=== PATIENT | male | born 1955 | race Caucasian/White ===

== ENCOUNTER 2018-03-06 10:52 | Inpatient (IN) | payer OTHER ==
[~2018-03-06] VITALS: Ht 172.7 cm; Wt 76.2 kg
--- NOTE | 2018-03-06 11:05 | NUR ---
PATIENT TO ED DT DIFFUSED ABDOMINAL PAIN, 8/10, NON RADIATING X 2 DAYS WORST TODAY. PATIENT DENIES NAUSEA AND VOMITTING. SKIN IS WARM TO TOUCH AND NON DIAPHORETIC,. PATIENT IS AFEBRILE. VSS
[2018-03-06] MEDS ORDERED: MORPHINE SULFATE INJ 2 MG/ML DISP.SYRIN ONE ×3 (11:11→12:49)
[2018-03-06] MEDS ORDERED: ONDANSETRON HCL/PF 4 MG/2 ML VIAL ONE (11:11)
--- NOTE | 2018-03-06 11:15 | NUR ---
SOLUTIONS DEVELOPMENT ANALYST AT
[2018-03-06 11:21] LABS: APPEARANCE,URINE Slightly Cloudy (CLEAR); BILIRUBIN,URINE MODERATE (NEGATIVE); BLOOD, URINE Trace-lysed Ery/uL (NEGATIVE); COLOR,URINE Dark (YELLOW); KETONES,URINE Negative (NEGATIVE); LEUKOCYTE ESTERASE ,URINE Negative (NEGATIVE); NITRITE, URINE Positive (NEGATIVE); PH,URINE 5.5 (5.0-8.0); PROTEIN,URINE 100 mg/dl (NEGATIVE); UGLUCOSE Negative (NEGATIVE)
[2018-03-06 11:27] LABS: BASOPHILS # (AUTO) 0.4 /CMM (0.0-0.2); BASOPHILS % (AUTO) 1.8 % (0.0-2.0); HEMATOCRIT 57 % (39-51); HEMOGLOBIN 19.8 g/dL (13.5-17.5); LYMPHOCYTES % (AUTO) 7.9 % (20.0-44.0); MEAN CORPUSCULAR HGB CONC 35 g/dl (31.0-36.0); MEAN CORPUSCULAR VOLUME 93 fL (80-96); MONOCYTES # (AUTO) 0.6 /CMM (0.1-1.30); MONOCYTES % (AUTO) 2.4 % (2.0-12.0); NEUTROPHILS # (AUTO) 21.9 /CMM (1.8-8.9); NEUTROPHILS % (AUTO) 87.9 % (43.0-81.0); PLATELET COUNT (AUTO) 248 /CMM (150-450); RED BLOOD CELL COUNT(AUTO) 6.17 MIL/uL (4.5-6.0); WHITE BLOOD COUNT (AUTO) 24.9 K/uL (4.3-11.0)
--- NOTE | 2018-03-06 11:29 | NUR ---
PT TAKEN TO CT.
[2018-03-06 11:30] LABS: BACTERIA,URINE 3+ /HPF (None Seen); SQUAMOUS EPITHELIAL CELL,UR Few /HPF (None Seen)
[2018-03-06] MEDS ORDERED: ONDANSETRON HCL/PF 4 MG/2 ML VIAL IVP ONE (11:30)
[2018-03-06] MEDS ORDERED: IV NS 0.9% 1,000 ML BAG IV ONE (11:30)
[2018-03-06] MEDS ORDERED: MORPHINE SULFATE INJ 2 MG/ML DISP.SYRIN IV ONE ×2 (11:30→13:00)
[2018-03-06 11:31] LABS: CALCIUM, SERUM 9.5 mg/dL (8.5-10.1); CARBON DIOXIDE 30 mmol/L (21-32); CHLORIDE 101 mmol/L (98-107); CREATININE 1.3 mg/dL (0.6-1.3); GLUCOSE 115 mg/dL (74-106); POTASSIUM 4.5 mmol/L (3.5-5.1); SODIUM SERUM 135 mmol/L (136-145); UREA NITROGEN, BLOOD 15 mg/dL (7-18)
[2018-03-06 11:35] LABS: INR 1.19 (0.85-1.15)
[2018-03-06 11:39] LABS: TROPONIN I < 0.017 ng/mL (0.00-0.056)
[2018-03-06 11:47] LABS: ALANINE AMINOTRANSFERASE 8 U/L (12-78); ALKALINE PHOSPHATASE 125 U/L (46-116); ASPARTATE AMINOTRANSFERASE 12 U/L (15-37); BILIRUBIN,DIRECT 0.2 mg/dL (0.0-0.2); BILIRUBIN,TOTAL 1.1 mg/dL (0.2-1.0); LIPASE 66 U/L (73-393); TOTAL PROTEIN, SERUM 7.7 g/dL (6.4-8.2)
[2018-03-06] MEDS ORDERED: IV NS 0.9% 1,000 ML IV ONE ×2 (12:00→12:30)
[2018-03-06] MEDS ORDERED: PIPERACILLIN /TAZOBACTAM 3.375 G in IV D5W 50 ML IV ONE (12:00)
[2018-03-06 12:09] LABS: BAND % (MANUAL) 2 % (0.0-5.0); LYMPHOCYTES % (MANUAL) 8 % (16-48); MONOCYTES % (MANUAL) 2 % (0-11.0); NEUTROPHILS % (MANUAL) 88 (42-76)
--- NOTE | 2018-03-06 12:16 | NUR ---
PAGED DR. MCELROY FOR CONSULT
--- NOTE | 2018-03-06 12:21 | NUR ---
CALLED [facility] FOR ADMISSION
--- NOTE | 2018-03-06 12:25 | NUR ---
CALLED NURSE SUP FOR TELE BED
--- NOTE | 2018-03-06 12:28 | NUR ---
Richar melgar in [facility] - 03/06/18 at 1228 by LARRY [id number] TELE
--- NOTE | 2018-03-06 12:40 | NUR ---
REPORT GIVEN TO CHANEL MOLINA FOR TELE 325.
[2018-03-06 13:00] VITALS: BP 165/106
--- NOTE | 2018-03-06 13:00 | NUR ---
VETERINARY SURGERY TECHNOLOGIST NOTE PT ARRIVED IN STABLE CONDITION VIA GURNEY ACCOMPANIED BY ER STAFF. ALERT, AWAKE AND RESPONSIVE. RESPIRATIONS ARE EVEN AND UNLABORED, NOT IN ANY ACUTE DISTRESS NOTED. PUPILS ARE REACTIVE TO LIGHT. BILATERAL HAND CHEF KITCHEN MANAGER ARE STRONG AND EQUAL. C/O PAIN TO ABDOMEN 05/07. PER TONIA MOLINA FROM ER, ADMINISTERED MORPHINE PRIOR TO SENDING PT TO TELE UNIT. DENIES ANY CHEST PAIN, N/V, SOB. ON O2 @2L/MIN VIA NC FOR COMFORT, TOLERATING WELL AND SATURATING AT 94%. DENIES ANY BLADDER DISCOMFORT. LAST DRINK WAS TODAY AT 0400 AND LAST MEAL WAS 1800 LAST NIGHT. PT IS NPO D/T SURGERY AT 2:30PM TODAY. IV SITE TO LAC INTACT, NO INFILTRATION NOTED. DRESSING KEPT CLEAN AND DRY. DR. CASTANEDA AWARE OF ADMISSION W/ ORDERS NOTED AND CARRIED OUT. SAFETY MEASURES ARE KEPT IN PLACE. INSTRUCTED PT ON HOW TO USE CALL LIGHT AND ABLE TO PERFORM RETURN DEMONSTRATION, CALL LIGHT IS LEFT WITHIN REACH. WILL CONTINUE TO MONITOR THROUGHOUT SHIFT FOR CONTINUITY OF CARE.
[2018-03-06] MEDS ORDERED: MORPHINE SULFATE INJ 2 MG/ML DISP.SYRIN IV PRN (13:30)
[2018-03-06] MEDS ORDERED: Z GUARD REMEDY 2 OZ OINT TP PRN (13:30)
[2018-03-06] MEDS ORDERED: HYDROCODONE/APAP 5/325MG 1 EACH TABLET PO PRN (13:30)
[2018-03-06] MEDS ORDERED: MAGNESIUM HYDROXIDE 30 ML UDC PO PRN (13:30)
[2018-03-06] MEDS ORDERED: ACETAMINOPHEN 650 MG/SUPP.RECT RC PRN (13:30)
[2018-03-06] MEDS ORDERED: ONDANSETRON HCL/PF 4 MG/2 ML VIAL IVP PRN (13:30)
[2018-03-06] MEDS ORDERED: MAG HYDROX/AL HYDROX/SIMETH 30 ML UDC PO PRN (13:30)
[2018-03-06] MEDS ORDERED: IV NS 0.9% 1,000 ML IV SCH (14:30)
--- NOTE | 2018-03-06 14:30 | NUR ---
ABRASIVE GRINDER NOTES PT P/U BY OR STAFF FOR SURGER BY DR. SCOTT. PT IS IN STABLE CONDITION AT THIS TIME. NO SKIN INJURIES NOTED. PAIN LEVEL DECREASED TO 6/10. PT SIGNED CONSENTS FOR SURGERY.
[2018-03-06] MEDS ORDERED: ROCURONIUM BROMIDE 50 MG/5 ML ONE ×2 (14:47→16:45)
[2018-03-06] MEDS ORDERED: MIDAZOLAM HCL 2 MG/2ML VIAL ONE (14:47)
[2018-03-06] MEDS ORDERED: SUCCINYLCHOLINE CHLORIDE 20 MG/ML VIAL ONE (14:47)
[2018-03-06] MEDS ORDERED: HYDROMORPHONE INJ 2 MG/ML DISP.SYRIN ONE (14:47)
[2018-03-06] MEDS ORDERED: VANCOMYCIN 1 GM VIAL ONE (15:07)
--- NOTE | 2018-03-06 15:26 | NUR ---
RN NOTES OR NURSE CAME TO BRING BACK TELE MONITOR AND SPRAY II PAINTER IV ATB AND PT BELONGINGS (1 SHIRT AND SHOES).
[2018-03-06] MEDS ORDERED: METHYLENE BLUE 10 ML VIAL ONE (16:38)
[2018-03-06] MEDS ORDERED: ZOSYN IVPB 3.375 G in IV D5W 50ml IV SCH (18:00)
[2018-03-06 19:29] VITALS: BP 158/104
--- NOTE | 2018-03-06 19:29 | NUR ---
RENEWABLE ENERGY ENGINEER RCD PT FROM OR WITH ABD PAIN 10/10; CALLING SURGEON TO CLARIFY PAIN MEDICATION ORDERS. PT NOT GIVEN PAIN MEDICATION PRIOR TO TRANSFER.
[2018-03-06 20:00] VITALS: BP 141/93
[2018-03-06] MEDS ORDERED: HYDROMORPHONE 1 MG/1 ML DISP.SYRIN IV PRN (20:00)
[2018-03-06] MEDS ORDERED: HYDROMORPHONE INJ 0.5 MG/0.5 ML SYRINGE ONE (20:37)
[2018-03-06] MEDS: IV LR 1000 ML 1,000 ML IV PRN (20:48)
[2018-03-06] MEDS: HYDROMORPHONE INJ 0.5 MG/0.5 ML SYRINGE IV PRN ×2 (20:48→22:42)
[2018-03-06 21:00] VITALS: BP 136/91
[2018-03-06 22:00] VITALS: BP 127/83
[2018-03-06 23:00] VITALS: BP 126/69
[2018-03-07] VITALS (14 sets, daily range): BP systolic 115–143; BP diastolic 79–97
[2018-03-07] MEDS: HYDROMORPHONE INJ 0.5 MG/0.5 ML SYRINGE IV PRN ×3 (00:30→10:11)
[2018-03-07] MEDS ORDERED: SENNOSIDES 8.6 MG TABLET PO PRN (03:00)
[2018-03-07] MEDS ORDERED: PIPERACILLIN /TAZOBACTAM 3.375 G VIAL IV ONE (04:14)
[2018-03-07 04:42] LABS: BASOPHILS % (AUTO) 0.3 % (0.0-2.0); HEMATOCRIT 54 % (39-51); HEMOGLOBIN 18.2 g/dL (13.5-17.5); LYMPHOCYTES # (AUTO) 0.6 /CMM (0.8-4.8); LYMPHOCYTES % (AUTO) 4.2 % (20.0-44.0); MEAN CORPUSCULAR HGB CONC 33 g/dl (31.0-36.0); MEAN CORPUSCULAR VOLUME 98 fL (80-96); MONOCYTES # (AUTO) 0.5 /CMM (0.1-1.30); MONOCYTES % (AUTO) 3.3 % (2.0-12.0); NEUTROPHILS # (AUTO) 13.6 /CMM (1.8-8.9); NEUTROPHILS % (AUTO) 92.2 % (43.0-81.0); PLATELET COUNT (AUTO) 183 /CMM (150-450); RDW COEFFICIENT OF VARIATION 16.2 (11.5-15.0); RED BLOOD CELL COUNT(AUTO) 5.57 MIL/uL (4.5-6.0); WHITE BLOOD COUNT (AUTO) 14.8 K/uL (4.3-11.0)
[2018-03-07] MEDS ORDERED: PIPERACILLIN /TAZOBACTAM 3.375 G in IV D5W 50 ML IV SCH (05:00)
[2018-03-07 05:12] LABS: CREATININE 1.7 mg/dL (0.6-1.3); MAGNESIUM 1.9 mg/dL (1.8-2.4); PHOSPHORUS 5.2 mg/dL (2.5-4.9); POTASSIUM 5.1 mmol/L (3.5-5.1)
[2018-03-07 05:33] LABS: BAND % (MANUAL) 10 % (0.0-5.0); LYMPHOCYTES % (MANUAL) 5 % (16-48); MONOCYTES % (MANUAL) 6 % (0-11.0); NEUTROPHILS % (MANUAL) 79 (42-76)
--- NOTE | 2018-03-07 07:30 | NUR ---
DATABASE ARCHITECT AM NOTES RECIEVED PT IN BED, AAO X 4, ON 4L O2 NASAL CANULA, NOT IN ANY DISTRESS, O2 SAT 95%, RESPIRATION EVEN AND UNLABORED, S/P EX LAP WITH SIGMOID COLON RESECTION + END COLOSTOMY BY DR. SCOTT ON 03/06/18, CDI DRESSING TO SURGICAL SITES. WITH COLOSTOMY TO LEFT SIDE ABDOMEN AND 2 BAUDILIO DRAIN ON RT SIDE. PATIENT WITH NGT TO LIS. SR HR 88 ON TELE MONITOR. LAC WITH LR AT 100 ML/HR INFUSING WELL, SITE CLEAR. SOLIMAN CATH IN PLACE DRAINING TO GRAVITY WITH ADEQUATE URINE OUTPUT. SAFETY MEASURES ARE KEPT IN PLACE. CALL LIGHT WITH IN REACH, SAFETY MEASURES IN PLACE. WILL CONTINUE TO MONITOR THROUGHOUT SHIFT FOR CONTINUITY OF CARE.
[2018-03-07] MEDS: IV LR 1000 ML 1,000 ML IV PRN ×2 (08:08→18:08)
[2018-03-07] MEDS: PANTOPRAZOLE 40 MG VIAL IV SCH (08:11)
[2018-03-07] MEDS: ENOXAPARIN SODIUM 40 MG/0.4 ML DISP.SYRIN SQ SCH (08:12)
[2018-03-07] MEDS ORDERED: DOCUSATE SODIUM 100 MG CAPSULE PO PRN (09:00)
--- NOTE | 2018-03-07 09:30 | NUR ---
ODD JOB WORKER NOTES DC TELEMETRY PER DR. CASTANEDA [[id number]]. DUE MEDS GIVEN
--- NOTE | 2018-03-07 10:59 | NUR ---
WELFARE CASE WORKER NOTES PATIENT TRANSFERRED TO ROOM 321-1 WITH ALL BELONGINGS. STABLE REPORT GIVEN TO ANDREWS MOLINA FOR TOAN. PER DR. SCOTT TO GET SPECIMEN FROM TUBE #1 FOR CREATININE TEST.
--- NOTE | 2018-03-07 11:00 | NUR ---
director televisionquality intern notes Received report from PHOTOGRAPHER ASSISTANT, patient noted with NGT and per report to keep patient on low intermittent suctioning. BAUDILIO drain 1 and 2 noted with serosanguineous blood, and colostomy bag. Ledesma in placed attached to drainage bag. No complaint of pain or discomfort at this time. Alert and oriented x 4, verbally responsive and able to make needs known. Accompanied by . Kept patient clean and comfortable in bed, call light with in patient reach, will continue to monitor accordingly. IV intact and patent with IVF infusing well. On tele monitor SR heart rate of 76.
[2018-03-07] MEDS: PIPERACILLIN /TAZOBACTAM 3.375 G in IV D5W 50 ML IV SCH ×3 (12:21→23:37)
[2018-03-07] MEDS: HYDROMORPHONE INJ 2 MG/ML DISP.SYRIN IV PRN ×5 (15:03→22:42)
--- NOTE | 2018-03-07 19:11 | NUR ---
telephone appointment clerk closing notes All needs provided attended, and anticipated. Patient is in stable condition at this time. Endorsed to next shift RN to continue care. Call light with in patient reach. On tele monitor SR heart rate of 99.
--- NOTE | 2018-03-07 19:40 | NUR ---
LOTUS NOTES DEVELOPER INITIAL NOTE PT IS IN BED AWAKE AND ALERT, ABLE TO MAKE NEEDS KNOWN. NO SIGN SOF SOB OR DISTRESS, ON 4L NC. NG TUBE IN PLACE ON LOW INTERMITTENT SUCTION. 2 BAUDILIO DRAINS ON RIGHT SIDE OF THE BODY WITH SEROSANGUINEOUS DRAINAGE. COLOSTOMY BAG ON RIGHT SIDE, I CHANGED THE BAG. SOLIMAN CATHETER IS INTACT AND DRAINING. IV ACCESS IS INTACT AND PATENT WITH FLUIDS INFUSING. DENIES PAIN AT THIS TIME. BED IS IN LOW AND LOCKED POSITION, CALL LIGHT WITHIN REACH. WILL CONTINUE TO MONITOR PT
[2018-03-08] VITALS: BP 140/96
--- NOTE | 2018-03-08 | NUR ---
telephone messenger note per shavon enriquez to susan Ledesma in am
[2018-03-08] MEDS: HYDROMORPHONE INJ 2 MG/ML DISP.SYRIN IV PRN ×6 (00:05→20:43)
[2018-03-08 04:00] VITALS: BP 144/92
[2018-03-08] MEDS: IV LR 1000 ML 1,000 ML IV PRN ×2 (05:12→17:03)
[2018-03-08] MEDS: PIPERACILLIN /TAZOBACTAM 3.375 G in IV D5W 50 ML IV SCH ×4 (05:12→23:06)
--- NOTE | 2018-03-08 06:00 | NUR ---
ms rn note d/c'd nitin
--- NOTE | 2018-03-08 06:36 | NUR ---
television parts tester closing note pt is in bed awake and alert. tele monitor shows sr 95. All drains are intact and patent, taveras was removed. No acute changes throughout the shift. all needs were anticipated and met. Bed is in low and locked position, call light within reach. will endorse to dayshift.
--- NOTE | 2018-03-08 07:15 | NUR ---
television production technician initial notes Received patient in bed, asleep, head of bed elevated, no SOB or distress noted, on 02 @4lpm via NC and tolerated well. Ledesma removed as endorsed by warehouse shift supervisor RN. Colostomy bag in placed. BAUDILIO 1 and 2 drain intact. IV intact and patent with IVF infusing well. Alert and oriented x 4, verbally responsive and able to make needs known. On tele monitor SR heart rate of 92. No complaint of pain or discomfort at this time. Call light with in patient reach, will continue to monitor accordingly.
[2018-03-08 08:00] VITALS: BP 151/93
[2018-03-08] MEDS: PANTOPRAZOLE 40 MG VIAL IV SCH (08:16)
[2018-03-08] MEDS: ENOXAPARIN SODIUM 40 MG/0.4 ML DISP.SYRIN SQ SCH (08:16)
[2018-03-08 09:27] LABS: BASOPHILS % (AUTO) 0.1 % (0.0-2.0); EOSINOPHILS % (AUTO) 1.2 % (0.0-6.0); HEMATOCRIT 57 % (39-51); HEMOGLOBIN 18.3 g/dL (13.5-17.5); LYMPHOCYTES # (AUTO) 1.2 /CMM (0.8-4.8); MEAN CORPUSCULAR HGB CONC 32 g/dl (31.0-36.0); MEAN CORPUSCULAR VOLUME 98 fL (80-96); MONOCYTES # (AUTO) 0.6 /CMM (0.1-1.30); NEUTROPHILS # (AUTO) 6.4 /CMM (1.8-8.9); NEUTROPHILS % (AUTO) 77.7 % (43.0-81.0); PLATELET COUNT (AUTO) 236 /CMM (150-450); RDW COEFFICIENT OF VARIATION 15.9 (11.5-15.0); RED BLOOD CELL COUNT(AUTO) 5.76 MIL/uL (4.5-6.0); WHITE BLOOD COUNT (AUTO) 8.2 K/uL (4.3-11.0)
[2018-03-08 09:40] LABS: CREATININE 2.1 mg/dL (0.6-1.3); MAGNESIUM 2.2 mg/dL (1.8-2.4); PHOSPHORUS 3.8 mg/dL (2.5-4.9); POTASSIUM 4.2 mmol/L (3.5-5.1)
[2018-03-08 10:03] LABS: BAND % (MANUAL) 7 % (0.0-5.0); LYMPHOCYTES % (MANUAL) 10 % (16-48); MONOCYTES % (MANUAL) 13 % (0-11.0); NEUTROPHILS % (MANUAL) 70 (42-76)
--- NOTE | 2018-03-08 12:00 | NUR ---
ms rn notes Called Dr. Olson and able to contact MD and informed about patient accidentally pulled out his NGT and per MD no need for re-insertion, just continue to monitor patient. All orders carried out and noted.
[2018-03-08 15:51] VITALS: BP 152/104
--- NOTE | 2018-03-08 19:12 | NUR ---
ms rn closing notes All needs provided, attended and anticipated. Patient is in stable condition. Endorsed to nest shift RN to continue care. Call light with in patient reach.
--- NOTE | 2018-03-08 19:13 | NUR ---
RN OPENING NOTES PATIENT RECEIVED IN BED, ALERT AND ORIENTED, VERBALLY RESPONSIVE, NOTED WITH NO SOB, BREATHING EVEN AND UNLABORED, CONTINUES TO RECEIVE IVF ORDERED. PT IS IN NO ACUTE DISTRESS, PT'S FAMILY AT BEDSIDE. ALL PATIENT'S NEEDS ATTENDED TO AT THIS TIME. BED PLACED IN LOW POSITION AND LOCKED IN PLACE. CALL LIGHT WITHIN EASY REACH. WILL CONTINUE TO MONITOR.
[2018-03-08 20:00] VITALS: BP 146/99
[2018-03-09] MEDS: IV LR 1000 ML 1,000 ML IV PRN ×2 (03:03→12:58)
[2018-03-09] MEDS: HYDROMORPHONE INJ 2 MG/ML DISP.SYRIN IV PRN ×4 (03:20→20:18)
[2018-03-09] MEDS: PIPERACILLIN /TAZOBACTAM 3.375 G in IV D5W 50 ML IV SCH ×3 (05:13→17:02)
--- NOTE | 2018-03-09 06:24 | NUR ---
RN CLOSING NOTES PATIENT IN BED,AWAKE, NOTED WITH NO SOB, BREATHING EVEN AND UNLABORED, IN NO ACUTE DISTRESS. ALL PATIENT'S NEEDS ATTENDED TO THROUGHOUT THE SHIFT, DUE MEDICATION GIVEN ORDERED. PT CONTINUES TO RECEIVE IVF ORDERED, INFUSING WELL. PT ALSO RECEIVING O2 VIA NC @ 3LPM. PLACED BED IN LOW POSITION, LOCKED IN PLACE, CALL LIGHT PLACED WITHIN EASY REACH. WILL ENDORSE TO AM SHIFT NURSE FOR CONTINUITY OF CARE.
--- NOTE | 2018-03-09 07:30 | NUR ---
MS/RN Patient received Patient received from dental professional. Abdominal dressing clean and dry, BAUDILIO drain X2 noted with minimal output at this time. Colostomy to left side of abdomen without output. Call light within reach, safety measures in place. Aware that NPO remains in place, offered ice chips and mouth care.
[2018-03-09 07:32] LABS: EOSINOPHILS % (AUTO) 1.6 % (0.0-6.0); HEMATOCRIT 50 % (39-51); HEMOGLOBIN 16.6 g/dL (13.5-17.5); LYMPHOCYTES # (AUTO) 1.3 /CMM (0.8-4.8); LYMPHOCYTES % (AUTO) 15.5 % (20.0-44.0); MEAN CORPUSCULAR HGB CONC 33 g/dl (31.0-36.0); MEAN CORPUSCULAR VOLUME 98 fL (80-96); MONOCYTES # (AUTO) 0.9 /CMM (0.1-1.30); MONOCYTES % (AUTO) 10.3 % (2.0-12.0); NEUTROPHILS # (AUTO) 6.1 /CMM (1.8-8.9); NEUTROPHILS % (AUTO) 72.6 % (43.0-81.0); PLATELET COUNT (AUTO) 235 /CMM (150-450); RDW COEFFICIENT OF VARIATION 15.9 (11.5-15.0); RED BLOOD CELL COUNT(AUTO) 5.14 MIL/uL (4.5-6.0); WHITE BLOOD COUNT (AUTO) 8.3 K/uL (4.3-11.0)
[2018-03-09 07:46] LABS: CALCIUM, SERUM 8.6 mg/dL (8.5-10.1); CREATININE 1.6 mg/dL (0.6-1.3); MAGNESIUM 2.3 mg/dL (1.8-2.4); PHOSPHORUS 3.1 mg/dL (2.5-4.9); POTASSIUM 4.2 mmol/L (3.5-5.1)
[2018-03-09 08:00] VITALS: BP 158/99
[2018-03-09] MEDS: PANTOPRAZOLE 40 MG VIAL IV SCH (08:32)
[2018-03-09] MEDS: ENOXAPARIN SODIUM 40 MG/0.4 ML DISP.SYRIN SQ SCH (08:39)
--- NOTE | 2018-03-09 09:10 | NUR ---
MS/RN Pain reassessment Pain scale now 3/10 following 1mg dilaudid for abdominal pain.
[2018-03-09 09:14] VITALS: BP 140/78
--- NOTE | 2018-03-09 11:00 | NUR ---
MS/RN Morning care Patient assisted with morning care.
[2018-03-09 16:00] VITALS: BP_SYST 158; BP_SYST 167; BP_DIAS 97; BP_DIAS 99
--- NOTE | 2018-03-09 16:00 | NUR ---
MS/RN S/B Ed [place] BOOK SORTER Seen by BOOK SORTER - drainage fluid from BAUDILIO to be sent to lab for gram stain and culture. Morning labs ordered.
[2018-03-09 17:00] VITALS: BP 142/71
--- NOTE | 2018-03-09 17:10 | NUR ---
MS/RN Drainage BAUDILIO drains emptied: -drain 1 - 20ml -drain 2 - 0ml
--- NOTE | 2018-03-09 18:11 | NUR ---
MS/RN End note Patient remains in stable condition. Abdominal dressing dry and intact, colostomy still without any output but now has bowel sounds. Last pain medication administered at 1300 for pain scale 7/10. Safety measures in place, call light within reach, will continue to monitor and endorse to mold shifter.
--- NOTE | 2018-03-09 19:15 | NUR ---
RN OPENING NOTES PATIENT IN BED, ALERT AND ORIENTED X 3, AT BEDSIDE. PT IN STABLE CONDITION, NO SOB, BREATHING EVEN AND UNLABORED. PT CONTINUES TO RECEIVE IVF ORDERED AND IS TOLERATING WELL. PLACED BED IN LOW POSITION, LOCKED IN PLACE & CALL LIGHT WITHIN EASY REACH. WILL CONTINUE TO MONITOR PT.
[2018-03-09 20:00] VITALS: BP 167/113
[2018-03-09 20:42] VITALS: BP 151/91
[2018-03-10] MEDS: PIPERACILLIN /TAZOBACTAM 3.375 G in IV D5W 50 ML IV SCH ×4 (00:19→18:54)
[2018-03-10] MEDS: HYDROMORPHONE INJ 2 MG/ML DISP.SYRIN IV PRN (00:19)
[2018-03-10] MEDS: IV LR 1000 ML 1,000 ML IV PRN ×2 (04:13→19:08)
--- NOTE | 2018-03-10 06:42 | NUR ---
RN CLOSING NOTES PATIENT IN BED, AWAKE, ALERT AND ORIENTED X 4, CONTINUES TO RECEIVE IVF ORDERED, INFUSING WELL. PT NOTED WITH NO SOB, BREATHING EVEN AND UNLABORED, COMPLIANT WITH CARE, IN STABLE CONDITION. PLACED BED IN LOW POSITION AND LOCKED IN PLACE, CALL LIGHT PLACED WITHIN EASY REACH. WILL ENDORSE TO AM SHIFT NURSE FOR CONTINUITY OF CARE.
--- NOTE | 2018-03-10 07:20 | NUR ---
MS/RN OPENING NOTE PATIENT ALERT AND ORIENTED X4. DENIES SOB. RESPIRATION REGULAR AND UNLABORED. DENIES PAIN. RIGHT HAND G 22 PATENT AND IV FLUIDS INFUSING WITH NO S/S INFILTRATION. BED LOW AND LOCKED. SIDE RAILS UP X2. CALL LIGHT WITHIN REACH. WILL CONTINUE CURRENT POC.
[2018-03-10 08:00] VITALS: BP 185/97
[2018-03-10] MEDS: ENOXAPARIN SODIUM 40 MG/0.4 ML DISP.SYRIN SQ SCH (10:02)
[2018-03-10] MEDS: PANTOPRAZOLE 40 MG VIAL IV SCH (10:02)
[2018-03-10 13:30] VITALS: BP 138/92
[2018-03-10 14:17] LABS: BASOPHILS % (AUTO) 0.2 % (0.0-2.0); EOSINOPHILS % (AUTO) 0.7 % (0.0-6.0); HEMATOCRIT 51 % (39-51); HEMOGLOBIN 17.1 g/dL (13.5-17.5); LYMPHOCYTES # (AUTO) 1.3 /CMM (0.8-4.8); LYMPHOCYTES % (AUTO) 11.3 % (20.0-44.0); MEAN CORPUSCULAR HGB CONC 33 g/dl (31.0-36.0); MEAN CORPUSCULAR VOLUME 96 fL (80-96); MONOCYTES # (AUTO) 1.1 /CMM (0.1-1.30); MONOCYTES % (AUTO) 9.7 % (2.0-12.0); NEUTROPHILS # (AUTO) 8.9 /CMM (1.8-8.9); NEUTROPHILS % (AUTO) 78.1 % (43.0-81.0); PLATELET COUNT (AUTO) 253 /CMM (150-450); RDW COEFFICIENT OF VARIATION 15.6 (11.5-15.0); RED BLOOD CELL COUNT(AUTO) 5.35 MIL/uL (4.5-6.0); WHITE BLOOD COUNT (AUTO) 11.4 K/uL (4.3-11.0)
[2018-03-10 14:27] LABS: CALCIUM, SERUM 8.8 mg/dL (8.5-10.1); CREATININE 1.2 mg/dL (0.6-1.3); POTASSIUM 3.8 mmol/L (3.5-5.1)
[2018-03-10 16:00] VITALS: BP 185/107
[2018-03-10] MEDS: hydrALAZINE HCL IV 20 MG VIAL IV PRN (19:04)
--- NOTE | 2018-03-10 19:20 | NUR ---
MS/RN CLOSING NOTE PATIENT ALERT AND ORIENTED X4. DENIES SOB. DENIES PAIN. BREATHING EVEN AND UNLABORED. PATIENT IN NO APPARENT DISTRESS. BED LOW AND LOCKED. SIDE RAILS UP X2. CALL LIGHT WITHIN REACH. WILL ENDORSE TO CHIEF CLERK.
--- NOTE | 2018-03-10 19:25 | NUR ---
RN OPENING NOTES RECEIVED PT IN BED, AWAKE, ALERT AND ORIENTED X 4, IN NO ACUTE DISTRESS, NO SOB, BREATHING EVEN AND UNLABORED, DENIES PAIN AT THIS TIME. ALL PATIENT'S NEEDS ATTENDED TO AT THIS TIME. PLACED CALL LIGHT WITHIN EASY REACH. BED IN LOW POSITION AND LOCKED IN PLACE. WILL CONTINUE TO MONITOR PT.
[2018-03-10 20:00] VITALS: BP 139/85
[2018-03-10] MEDS: ZOLPIDEM TARTRATE 5 MG TABLET PO PRN (21:06)
--- NOTE | 2018-03-10 21:10 | NUR ---
RN NOTES PATIENT REQUESTING FOR MEDICATION TO HELP HIM SLEEP. ADMINISTERED AMBIEN ORDERED. DENIES PAIN AT THIS TIME. ALL PATIENT'S NEEDS ATTENDED TO. WILL CONTINUE TO MONITOR.
[2018-03-11] MEDS: PIPERACILLIN /TAZOBACTAM 3.375 G in IV D5W 50 ML IV SCH ×4 (00:10→18:15)
[2018-03-11] MEDS: HYDROMORPHONE INJ 2 MG/ML DISP.SYRIN IV PRN ×2 (03:09→19:59)
[2018-03-11] MEDS: IV LR 1000 ML 1,000 ML IV PRN ×2 (05:13→22:17)
--- NOTE | 2018-03-11 06:30 | NUR ---
RN CLOSING NOTES PATIENT IN BED, ASLEEP BUT EASILY AROUSABLE. PT IS ALERT AND ORIENTED X 4, NO SOB, IN NO ACUTE DISTRESS AND IS IN STABLE CONDITION. ALL PATIENT'S NEEDS ATTENDED TO THROUGHOUT THE SHIFT. CONTINUES TO RECEIVE IVF ORDERED, INFUSING WELL VIA IVP ON RHAND G#22. CALL LIGHT PLACED WITHIN EASY REACH. PLACED BED IN LOW POSITION AND LOCKED IN PLACE. WILL ENDORSE TO AM SHIFT NURSE FOR CONTINUITY OF CARE.
--- NOTE | 2018-03-11 07:13 | NUR ---
MS/RN OPENING NOTE PATIENT IN BED AWAKE. ALERT AND ORIENTED X4. DENIES SOB. DENIES PAIN. RESPIRATION REGULAR AND UNLABORED. RIGHT HAND G 22 PATENT AND IV INFUSING WITH NO S/S INFILTRATION. COLOSTOMY BAG IN PLACE. BED LOW AND LOCKED. SIDE RAILS UP X2. CALL LIGHT WITHIN REACH. WILL CONTINUE TO MONITOR.
[2018-03-11 07:15] LABS: BASOPHILS % (AUTO) 0.2 % (0.0-2.0); EOSINOPHILS % (AUTO) 1.5 % (0.0-6.0); HEMATOCRIT 49 % (39-51); HEMOGLOBIN 16.5 g/dL (13.5-17.5); LYMPHOCYTES # (AUTO) 1.9 /CMM (0.8-4.8); LYMPHOCYTES % (AUTO) 17.2 % (20.0-44.0); MEAN CORPUSCULAR HGB CONC 34 g/dl (31.0-36.0); MEAN CORPUSCULAR VOLUME 96 fL (80-96); MONOCYTES # (AUTO) 1.2 /CMM (0.1-1.30); MONOCYTES % (AUTO) 10.4 % (2.0-12.0); NEUTROPHILS % (AUTO) 70.7 % (43.0-81.0); PLATELET COUNT (AUTO) 262 /CMM (150-450); RDW COEFFICIENT OF VARIATION 15.5 (11.5-15.0); RED BLOOD CELL COUNT(AUTO) 5.12 MIL/uL (4.5-6.0); WHITE BLOOD COUNT (AUTO) 11.3 K/uL (4.3-11.0)
[2018-03-11 07:18] LABS: CALCIUM, SERUM 8.5 mg/dL (8.5-10.1); POTASSIUM 3.3 mmol/L (3.5-5.1)
[2018-03-11 08:00] VITALS: BP 161/90
[2018-03-11] MEDS: PANTOPRAZOLE 40 MG VIAL IV SCH (08:30)
[2018-03-11] MEDS: ENOXAPARIN SODIUM 40 MG/0.4 ML DISP.SYRIN SQ SCH (08:30)
[2018-03-11] MEDS ORDERED: POTASSIUM CHLORIDE 20 MEQ POWDER PACKET PO SCH (09:30)
--- NOTE | 2018-03-11 10:25 | NUR ---
MS/RN NOTE PER MACHINE CLOTHING MAN NARENDRA DIET IS ADVANCED. ROXANNA ORDER IS NOTED AND CARRIED OUT.
[2018-03-11 16:00] VITALS: BP 163/96
--- NOTE | 2018-03-11 18:26 | NUR ---
MS/RN CLOSING NOTE PATIENT ALERT AND ORIENTED X4. DENIES SOB. RESPIRATION REGULAR AND UNLABORED. PATIENT IN ROOM AIR AND OXYGEN SATURATION LEVEL AND 96%. DENIES PAIN. COLOSTOMY BAG IS CHANGED. COLOSTOMY DRAINING FREELY. NO S/S COMPLICATIONS AT S STOMA SITE. ABDOMINAL DRESSING IN PLACE WITH NO BLEEDING AND NO S/S INFECTION. PATIENT AMBULATES WITH STAND BY ASSIST ADN FWW. VERBAL CUES PROVIDED TO KEEP SAFETY AWARENESS HIGH. LEFT WRIST G 22 PATENT AND IV INFUSING WITH NO S/S INFILTRATION. BED LOW AND LOCKED. SIDE RAILS UP X3. CALL LIGHT WITHIN REACH. WILL ENDORSE TO SIGN WIRER.
[2018-03-11 20:09] VITALS: BP 157/106
[2018-03-12] MEDS: PIPERACILLIN /TAZOBACTAM 3.375 G in IV D5W 50 ML IV SCH ×5 (00:13→23:43)
[2018-03-12] MEDS: HYDROMORPHONE INJ 2 MG/ML DISP.SYRIN IV PRN ×4 (02:40→20:22)
--- NOTE | 2018-03-12 06:39 | NUR ---
MS RN NOTES AWAKE & RESPONSIVE. NOT IN ANY DISTRESS. NO SOB NOTED. DENIES ANY PAIN OR DISCOMFORT AT THIS TIME. WITH IVF INFUSING WELL. AM CARE DONE. MONITORED ACCORDINGLY. CALL LIGHT WITHIN REACH. BED IN LOWEST POSITION. SR UP X 2 FOR SAFETY. WILL ENDORSE TO NEXT SHIFT.
[2018-03-12 06:51] LABS: CALCIUM, SERUM 8.6 mg/dL (8.5-10.1); POTASSIUM 3.1 mmol/L (3.5-5.1)
--- NOTE | 2018-03-12 07:35 | NUR ---
RN OPENING NOTES PATIENT AWAKE, RESTING COMFORTABLY IN BED, RESPIRATIONS EVEN AND UNLABORED, ABLE TO MAKE NEEDS KNOWN, DENIES ANY PAIN OR DISCOMFORT AT THIS TIME. IV ACCESS PATENT AND INTACT NO REDNESS OR INFILTRATION NOTED. SAFETY MEASURES IN PLACE, KEPT CLEAN DRY AND COMFORTABLE CALL LIGHT WITHIN EASY REACH WILL CONTINUE TO MONITOR
[2018-03-12 08:00] VITALS: BP 131/94
[2018-03-12] MEDS: PANTOPRAZOLE 40 MG VIAL IV SCH (09:05)
[2018-03-12] MEDS: ENOXAPARIN SODIUM 40 MG/0.4 ML DISP.SYRIN SQ SCH (09:17)
[2018-03-12] MEDS ORDERED: POTASSIUM CHLORIDE 20 MEQ POWDER PACKET NG SCH (10:00)
[2018-03-12] MEDS: POTASSIUM CHLORIDE 20 MEQ TAB.PRT.SR PO SCH ×3 (11:19→11:21)
[2018-03-12 11:28] LABS: BASOPHILS # (AUTO) 0.1 /CMM (0.0-0.2); BASOPHILS % (AUTO) 0.3 % (0.0-2.0); EOSINOPHILS % (AUTO) 1.2 % (0.0-6.0); HEMATOCRIT 54 % (39-51); HEMOGLOBIN 17.7 g/dL (13.5-17.5); LYMPHOCYTES # (AUTO) 1.7 /CMM (0.8-4.8); LYMPHOCYTES % (AUTO) 11.2 % (20.0-44.0); MEAN CORPUSCULAR HGB CONC 33 g/dl (31.0-36.0); MEAN CORPUSCULAR VOLUME 97 fL (80-96); MONOCYTES # (AUTO) 1.2 /CMM (0.1-1.30); MONOCYTES % (AUTO) 7.5 % (2.0-12.0); NEUTROPHILS # (AUTO) 12.4 /CMM (1.8-8.9); NEUTROPHILS % (AUTO) 79.8 % (43.0-81.0); PLATELET COUNT (AUTO) 267 /CMM (150-450); RED BLOOD CELL COUNT(AUTO) 5.55 MIL/uL (4.5-6.0); WHITE BLOOD COUNT (AUTO) 15.5 K/uL (4.3-11.0)
[2018-03-12] MEDS: IV LR 1000 ML 1,000 ML IV PRN ×2 (12:40→22:46)
[2018-03-12 16:00] VITALS: BP 164/94
[2018-03-12] MEDS: hydrALAZINE HCL IV 20 MG VIAL IV PRN (17:55)
[2018-03-12] MEDS ORDERED: IOHEXOL-300 100 ML VIAL IV ONE (18:07)
[2018-03-12] MEDS ORDERED: IV NS 0.9% 500 ML IV ONE (18:54)
[2018-03-12] MEDS ORDERED: CT SWABBABLE VALVE TRANS SET 1 EA INFUS.SET MC ONE (18:54)
--- NOTE | 2018-03-12 19:01 | NUR ---
RN CLOSING NOTES PATIENT AWAKE, RESTING COMFORTABLY IN BED, RESPIRATIONS EVEN AND UNLABORED, ABLE TO MAKE NEEDS KNOWN, DENIES ANY PAIN OR DISCOMFORT AT THIS TIME. IV ACCESS PATENT AND INTACT NO REDNESS OR INFILTRATION NOTED. SAFETY MEASURES IN PLACE, KEPT CLEAN DRY AND COMFORTABLE CALL LIGHT WITHIN EASY REACH WILL CONTINUE TO MONITOR, PT NPO FOR CT OF ABD AT THIS TIME, CONSENT SIGNED, AND RADIOLOGY AWARE, WILL ENDORSE TO NEXT SHIFT FOR CONTINUITY OF CARE
--- NOTE | 2018-03-12 19:40 | NUR ---
MS RN NOTE PATIENT CAME BACK FROM CT ABD PROCEDURE.
--- NOTE | 2018-03-12 19:50 | NUR ---
MS RN NOTE RECEIVED PATIENT FROM DAY SHIFT, PATIENT IS ALERT AND ORIENTEDX4, AT BED SIDE. NO S/S OF RESPIRATORY DISTRESS AND COMPLAINS OF MILD PAIN ON ABDOMINAL SURGICAL SITE, NO DRAINAGE PRESENT. COLOSTOMY PRESENT ON LLQ, IV ON LEFT WRIST IS PATENT AND INTACT. SRX2, BED IN LOW POSITION, CALL LIGHT WITHIN REACH, WILL CONTINUE TO MONITOR PATIENT.
[2018-03-12 20:00] VITALS: BP 158/80
[2018-03-13] MEDS: HYDROMORPHONE INJ 2 MG/ML DISP.SYRIN IV PRN ×3 (01:57→21:18)
[2018-03-13] MEDS: PIPERACILLIN /TAZOBACTAM 3.375 G in IV D5W 50 ML IV SCH ×4 (05:35→23:56)
[2018-03-13 06:41] LABS: BASOPHILS % (AUTO) 0.2 % (0.0-2.0); EOSINOPHILS % (AUTO) 1.8 % (0.0-6.0); HEMATOCRIT 51 % (39-51); HEMOGLOBIN 17.1 g/dL (13.5-17.5); LYMPHOCYTES # (AUTO) 1.9 /CMM (0.8-4.8); LYMPHOCYTES % (AUTO) 16.5 % (20.0-44.0); MEAN CORPUSCULAR HGB CONC 33 g/dl (31.0-36.0); MEAN CORPUSCULAR VOLUME 97 fL (80-96); MONOCYTES # (AUTO) 0.7 /CMM (0.1-1.30); MONOCYTES % (AUTO) 6.5 % (2.0-12.0); NEUTROPHILS # (AUTO) 8.5 /CMM (1.8-8.9); PLATELET COUNT (AUTO) 273 /CMM (150-450); RDW COEFFICIENT OF VARIATION 15.5 (11.5-15.0); RED BLOOD CELL COUNT(AUTO) 5.33 MIL/uL (4.5-6.0); WHITE BLOOD COUNT (AUTO) 11.4 K/uL (4.3-11.0)
[2018-03-13 06:52] LABS: CALCIUM, SERUM 8.6 mg/dL (8.5-10.1); POTASSIUM 3.4 mmol/L (3.5-5.1)
--- NOTE | 2018-03-13 07:27 | NUR ---
MS RN NOTE PATIENT IS RESTING IN BED COMFORTABLY, NO ACUTE DISTRESS NOTED THROUGHOUT THE SHIFT. MORNING CARE RENDERED, ALL DUE MEDS GIVEN. IV ON LEFT FA IS PATENT AND INTACT, FLUID IS RUNNING. ENDORSED TO DAY SHIFT NURSE FOR TOAN.
--- NOTE | 2018-03-13 07:38 | NUR ---
RN OPENING NOTE RECEIVED PT. PT IS STABLE AND SLEEPING IN BED. NO S/S OF RESP DISTRESS/SOB. PT DOES NOT APPEAR TO BE IN PAIN AT THIS TIME. ON RA, O2 SAT WNL. IV ACCESS LOCATED ON LFA 22G INFUSING LR AT 100 ML/HR. PER BRIM STITCHER REPORT, ABD DRESSING CHANGED IN EARLY AM APPROX MIDNIGHT. SAFETY MEASURES IN PLACE, CALL LIGHT WITHIN REACH. WILL CONTINUE TO MONITOR.
[2018-03-13 08:00] VITALS: BP 172/99
[2018-03-13] MEDS: PANTOPRAZOLE 40 MG VIAL IV SCH (08:40)
[2018-03-13] MEDS: ENOXAPARIN SODIUM 40 MG/0.4 ML DISP.SYRIN SQ SCH (08:41)
[2018-03-13] MEDS: IV LR 1000 ML 1,000 ML IV PRN ×2 (10:13→22:12)
[2018-03-13] MEDS ORDERED: POTASSIUM CHLORIDE 20 MEQ TAB.PRT.SR PO SCH (11:30)
--- NOTE | 2018-03-13 13:48 | NUR ---
RN NOTES ABD WOUND DRESSING CHANGE PERFORMED BY MD BEDSIDE. APPROXIMATELY HALF OF THE ISABELL REMOVED, WOUND IRRIGATED WITH BETADINE/SALINE MIXTURE. WILL CONTINUE TO MONITOR PT.
[2018-03-13 16:00] VITALS: BP 152/86
--- NOTE | 2018-03-13 19:34 | NUR ---
RN CLOSING NOTES PT IN BED RESTING. NO S/S OF SOB OR RESP DISTRESS. NO C/O PAIN AT THIS TIME. ALL PT NEEDS ANTICIPATED AND MET. SAFETY MEASURES IN PLACE, CALL LIGHT IN REACH. WILL ENDORSE TO CORE DRILLER FOR TOAN.
--- NOTE | 2018-03-13 19:42 | NUR ---
MS RN OPENING NOTE RECEIVED PT RESTING IN BED, PT IS STABLE. A & O X 4, IRISH & LITTLE BANGLADESHI SPEAKING. NO S/S OF RESP DISTRESS/SOB. PT DOES NOT APPEAR TO BE IN PAIN AT THIS TIME. ON RA, O2 SAT WNL. IV ACCESS LOCATED ON LFA 22G INFUSING LR AT 100 ML/HR. ABD DRESSING INTACT & CLEAN, NO NEED TO CHANGE @ THIS TIME. COLOSTOMY BAG INTACT. USES URINAL IN BED. BED IN LOW LOCKED POSITION. SAFETY MEASURES IN PLACE, CALL LIGHT WITHIN REACH. WILL CONTINUE TO MONITOR.
[2018-03-13 20:00] VITALS: BP 146/90
--- NOTE | 2018-03-13 21:18 | NUR ---
PRN DILAUDID GIVEN PT HAD C/O ABDOMINAL PAIN 05/07, ASKED TO TAKE ONLY IV INJECTION. PRN DILAUDID GIVEN, WILL REASSESS FOR EFFECTIVENESS.
[2018-03-14] MEDS: ZOLPIDEM TARTRATE 5 MG TABLET PO PRN (01:38)
--- NOTE | 2018-03-14 01:38 | NUR ---
PRN TAMERA GIVEN PT VERBALIZED THAT HE TRIED TO GO TO SLEEP, BUT UNABLE TO SLEEP. HE WANTED TO GAT MEDICINE TO HELP HIM GO TO SLEEP. PRSeferino PHILIP GIVEN ORDERED, WILL MONITOR FOR EFFECTIVENESS.
--- NOTE | 2018-03-14 02:38 | NUR ---
MS RN NOTE PT NOTED TO BE SLEEPING COMFORTABLY @ THIS TIME. NO S/S OF PAIN NOTED.
[2018-03-14] MEDS: PIPERACILLIN /TAZOBACTAM 3.375 G in IV D5W 50 ML IV SCH ×3 (05:26→18:25)
--- NOTE | 2018-03-14 06:50 | NUR ---
MS RN CLOSING NOTE PT RESTING IN BED IN STABLE CONDITION. A & O X 4, NEPALESE & LITTLE JORDANIAN SPEAKING. NO S/S OF RESP DISTRESS/SOB. PT DOES NOT APPEAR TO BE IN PAIN AT THIS TIME. ON RA, O2 SAT WNL. IV ACCESS LOCATED ON LFA 22G INFUSING LR AT 100 ML/HR. ABD COVER DRESSING CHANGED, WAS SOILED/SOAKED WITH DRAINAGE. COLOSTOMY BAG INTACT & EMPTIED IT. USES URINAL IN BED. BED IN LOW LOCKED POSITION. SAFETY MEASURES IN PLACE, CALL LIGHT WITHIN REACH. WILL ENDORSE TO AM RN FOR CONTINUITY OF CARE.
--- NOTE | 2018-03-14 07:36 | NUR ---
RN OPENING NOTE RECEIVED PT. PT IS STABLE AND SLEEPING IN BED. NO S/S OF RESP DISTRESS/SOB. PT DOES NOT APPEAR TO BE IN PAIN AT THIS TIME. ON RA, O2 SAT WNL. IV ACCESS LOCATED ON LFA 22G INFUSING LR AT 100 ML/HR. PT TO HAVE WOUND VAC APPLIED BY TODAY 03/14/18. SAFETY MEASURES IN PLACE, CALL LIGHT WITHIN REACH. WILL CONTINUE TO MONITOR.
[2018-03-14 08:00] VITALS: BP 178/112
[2018-03-14 08:21] LABS: CALCIUM, SERUM 8.4 mg/dL (8.5-10.1); CREATININE 1.1 mg/dL (0.6-1.3); POTASSIUM 3.1 mmol/L (3.5-5.1)
[2018-03-14] MEDS: PANTOPRAZOLE 40 MG VIAL IV SCH (08:35)
[2018-03-14] MEDS: ENOXAPARIN SODIUM 40 MG/0.4 ML DISP.SYRIN SQ SCH (09:00)
[2018-03-14] MEDS: HYDROMORPHONE INJ 2 MG/ML DISP.SYRIN IV PRN ×3 (10:26→21:58)
[2018-03-14] MEDS ORDERED: POTASSIUM CHLORIDE 20 MEQ TAB.PRT.SR PO ONE (11:30)
[2018-03-14] MEDS: POTASSIUM CL. PREMIX PERIPHER. 50 ML IV SCH ×4 (12:09→15:32)
[2018-03-14 16:00] VITALS: BP 145/103
[2018-03-14] MEDS: Potassium Chloride 10 MEQ, LIDOCAINE HCL/PF 1% 1 ML in IV D5W 50 ML IV SCH ×2 (16:30→17:34)
[2018-03-14 16:56] LABS: BASOPHILS % (AUTO) 0.3 % (0.0-2.0); EOSINOPHILS % (AUTO) 1.9 % (0.0-6.0); HEMATOCRIT 51 % (39-51); HEMOGLOBIN 16.7 g/dL (13.5-17.5); LYMPHOCYTES % (AUTO) 17.7 % (20.0-44.0); MEAN CORPUSCULAR HGB CONC 33 g/dl (31.0-36.0); MEAN CORPUSCULAR VOLUME 96 fL (80-96); MONOCYTES # (AUTO) 0.8 /CMM (0.1-1.30); MONOCYTES % (AUTO) 7.6 % (2.0-12.0); NEUTROPHILS # (AUTO) 8.1 /CMM (1.8-8.9); NEUTROPHILS % (AUTO) 72.5 % (43.0-81.0); PLATELET COUNT (AUTO) 313 /CMM (150-450); RDW COEFFICIENT OF VARIATION 15.4 (11.5-15.0); RED BLOOD CELL COUNT(AUTO) 5.31 MIL/uL (4.5-6.0); WHITE BLOOD COUNT (AUTO) 11.1 K/uL (4.3-11.0)
[2018-03-14 17:06] LABS: CALCIUM, SERUM 8.3 mg/dL (8.5-10.1); CREATININE 1.2 mg/dL (0.6-1.3); POTASSIUM 3.3 mmol/L (3.5-5.1)
--- NOTE | 2018-03-14 18:34 | NUR ---
RN CLOSING NOTE PT IN BED RESTING. NO S/S OF RESP DISTRESS OR SOB. NO C/O PAIN AT THIS TIME. DR. SCOTT TO APPLY WOUND VAC IN AM, ORDER IN PLACE, SUPPLIES AT BEDSIDE. SAFETY MEASURES IN PLACE, CALL LIGHT WITHIN REACH. WILL ENDORSE TO BLOW MOLDER FOR TOAN.
--- NOTE | 2018-03-14 19:31 | NUR ---
MS RN OPENING NOTE RECEIVED PT. PT IS STABLE AND RESTING IN BED. NO S/S OF RESP DISTRESS/SOB. PT DOES NOT APPEAR TO BE IN PAIN AT THIS TIME. ON RA, O2 SAT WNL. IV ACCESS LOCATED ON LFA 22G INFUSING LR AT 100 ML/HR. PT TO HAVE WOUND VAC & ABDOMINAL BINDER APPLIED BY ON 03/15/18. @ BED SIDE. BED IN LOW LOCKED POSITION. SAFETY MEASURES IN PLACE, CALL LIGHT WITHIN REACH. WILL CONTINUE TO MONITOR.
[2018-03-14 20:00] VITALS: BP 153/97
--- NOTE | 2018-03-14 21:05 | NUR ---
MS/RN NOTES RECEIVED REPORT AND RECEIVED PT. FROM JESSE ROGERS. PT. IS LYING IN BED, AWAKE, ALERT AND ORIENTED X3. BREATHING EVEN AND UNLABORED ON ROOM AIR. NO SOB, RESPIRATORY DISTRESS OR COMPLAINTS OF PAIN NOTED AT THIS TIME. PT. WITH LEFT FOREARM 22 GAUGE PERIPHERAL IV PRESENT, PATENT AND INTACT ADMINISTERING TO PT. LR @ 100ML/HR. BED LOCKED AND IN LOWEST POSITION, SIDE RAILS UP X2, CALL LIGHT WITHIN REACH, WILL CONTINUE TO MONITOR.
--- NOTE | 2018-03-14 23:40 | NUR ---
MS/RN NOTES PT. REFUSING PICTURES AT THIS TIME. PT. STATES "I DON'T WANT TO BE BOTHERED. I WANT TO BE LEFT ALONE TO SLEEP". WILL CONTINUE TO MONITOR.
[2018-03-15] MEDS: PIPERACILLIN /TAZOBACTAM 3.375 G in IV D5W 50 ML IV SCH ×4 (00:23→17:18)
[2018-03-15] MEDS: ZOLPIDEM TARTRATE 5 MG TABLET PO PRN (00:26)
--- NOTE | 2018-03-15 06:29 | NUR ---
MS/RN NOTES PT. IS LYING IN BED RESTING. BREATHING EVEN AND UNLABORED ON ROOM AIR. NO SOB, RESPIRATORY DISTRESS OR COMPLAINTS OF PAIN NOTED AT THIS TIME. PT. WITH LEFT FOREARM 22 GAUGE PERIPHERAL IV PRESENT, PATENT AND INTACT ADMINISTERING TO PT. LR @ 100ML/HR. ALL PT. NEEDS MET. PT. CONTINUES TO REFUSE TO TURN AND REPOSITION. EDUCATED PT. ON IMPORTANCE OF TURNING AND REPOSITIONING, PT. VERBALIZED UNDERSTANDING AND CONTINUES TO REFUSE. PT. CONTINUES TO REFUSE PICTURES AT THIS TIME. PT. STATES HE WANTS TO BE LEFT ALONE TO SLEEP. BED LOCKED AND IN LOWEST POSITION, SIDE RAILS UP X2, CALL LIGHT WITHIN REACH, WILL ENDORSE TO DAYSHIFT NURSE FOR CONTINUITY OF CARE.
[2018-03-15 07:05] LABS: CALCIUM, SERUM 8.6 mg/dL (8.5-10.1); CREATININE 1.1 mg/dL (0.6-1.3); POTASSIUM 3.3 mmol/L (3.5-5.1)
[2018-03-15 07:15] LABS: BASOPHILS % (AUTO) 0.4 % (0.0-2.0); EOSINOPHILS % (AUTO) 2.2 % (0.0-6.0); HEMATOCRIT 49 % (39-51); HEMOGLOBIN 16.5 g/dL (13.5-17.5); LYMPHOCYTES # (AUTO) 1.6 /CMM (0.8-4.8); LYMPHOCYTES % (AUTO) 15.6 % (20.0-44.0); MEAN CORPUSCULAR HGB CONC 34 g/dl (31.0-36.0); MEAN CORPUSCULAR VOLUME 96 fL (80-96); MONOCYTES # (AUTO) 0.7 /CMM (0.1-1.30); MONOCYTES % (AUTO) 7.1 % (2.0-12.0); NEUTROPHILS # (AUTO) 7.9 /CMM (1.8-8.9); NEUTROPHILS % (AUTO) 74.7 % (43.0-81.0); PLATELET COUNT (AUTO) 294 /CMM (150-450); RDW COEFFICIENT OF VARIATION 15.7 (11.5-15.0); RED BLOOD CELL COUNT(AUTO) 5.11 MIL/uL (4.5-6.0); WHITE BLOOD COUNT (AUTO) 10.5 K/uL (4.3-11.0)
[2018-03-15] MEDS: IV LR 1000 ML 1,000 ML IV PRN ×2 (07:25→21:18)
--- NOTE | 2018-03-15 07:30 | NUR ---
MS RN OPENING NOTE PATIENT IS ALERT AND ORIENTED x4. NO PAIN AT THIS TIME. NO SOB OR DISTRESS NOTED. CALL LIGHT WITHIN REACH. SAFETY MEASURES IMPLEMENTED. PATIENT STATED 8/10 PAIN, MEDICATION TO BE GIVEN. ABLE TO COMMUNICATE NEEDS. IV ON LEFT FOREARM INTACT AND PATENT NO REDNESS OR SWELLING NOTED WITH IV FLUIDS RUNNING AT 100 ML/HR TOLERATING WELL. COLOSTOMY BAG TO BE CHANGED THROUGHOUT SHIFT. INCISION KEPT CLEAN DRY AND INTACT, PER SPICE BLENDER LANDFILL ATTENDANT VAC TO BE APPLIED TO PATIENT TODAY OR TOMORROW, WILL FOLLOW UP. WILL CONTINUE TO MONITOR THROUGHOUT SHIFT.
[2018-03-15 08:00] VITALS: BP 160/90
[2018-03-15] MEDS: PANTOPRAZOLE 40 MG VIAL IV SCH (08:21)
[2018-03-15] MEDS: HYDROMORPHONE INJ 2 MG/ML DISP.SYRIN IV PRN ×3 (08:22→21:19)
[2018-03-15] MEDS: ENOXAPARIN SODIUM 40 MG/0.4 ML DISP.SYRIN SQ SCH (08:22)
--- NOTE | 2018-03-15 08:22 | NUR ---
MS RN NOTE DILAUDID 1MG IV GIVEN FOR PAIN 8/10 IN ABDOMEN/INCISIONAL AREA. WILL REASSESS FOR PAIN AND MONITOR PATIENT
--- NOTE | 2018-03-15 09:00 | NUR ---
MS RN NOTE ABDOMINAL DRESSING CHANGED DUE TO BEING SOILED. INCISION SITE CLEAN, NO REDNESS NOTED. WILL CONTINUE TO CHANGE DRESSING NEEDED THROUGHOUT SHIFT
--- NOTE | 2018-03-15 10:00 | NUR ---
MS RN NOTE PER WOUND CARE NURSE SAMIRA, WOUND VAC WILL BE APPLIED TOMORROW 03/16/18. WOUND TREATMENT FOR INCISION CARE IN PLACE AT THIS TIME.
--- NOTE | 2018-03-15 10:07 | NUR ---
WEB SUPPORT ENGINEER TREATMENT ORDERS FOR ABDOMINAL SURGICAL WOUND CLARIFIED WITH SURGEON. ALL DISCUSSED WITH NURSING STAFF. SEE TREATMENT ORDERS.
[2018-03-15] MEDS ORDERED: POTASSIUM CHLORIDE 20 MEQ TAB.PRT.SR PO ONE (11:00)
--- NOTE | 2018-03-15 12:20 | NUR ---
MS RN NOTE PER PATIENT REQUEST FOR COLOSTOMY BAG TO BE CHANGED. OSTOMY SITE CLEANED, STOMA HAS GOOD COLOR. NEW COLOSTOMY BAG APPLIED. WILL CONTINUE TO MONITOR THROUGHOUT SHIFT
[2018-03-15 16:00] VITALS: BP 150/95
[2018-03-15] MEDS: DAKINS QUARTER STRENGTH (0.125%) 480 ML BOTTLE TOP SCH (17:18)
--- NOTE | 2018-03-15 18:56 | NUR ---
MS RN CLOSING NOTE PATIENT IS RESTING IN BED AT THIS TIME. CALL LIGHT WITHIN REACH AT ALL TIMES. SAFETY MEASURES IMPLEMENTED. ABLE TO COMMUNICATE NEEDS. IV INTACT AND PATENT NO REDNESS OR SWELLING NOTED WITH IV FLUIDS RUNNING AT 100 ML/HR. ABLE TO COMMUNICATE NEEDS. ALL DUE MEDICATIONS GIVEN ORDERED BY MD. ALL NURSING CARE NEEDS ATTENDED TO NEEDED. WOUND TREATMENT DONE BID THROUGHOUT SHIFT. PER SAMIRA, MATERIALS MANAGEMENT SUPERVISOR VAC WILL BE PLACED TOMORROW 03/16/18. PER DR. SCOTT PATIENT NEEDS TO WEAR ABDOMINAL BINDER WHILE AMBULATING AND WOUND VAC ASSISTANCE WHEN DISCHARGED TO HOME. NO FACIAL GRIMACING NOTED FOR PAIN. NO SOB OR DISTRESS NOTED. WILL ENDORSE TO DRIVER MATERIAL HANDLER NURSE FOR TOAN
--- NOTE | 2018-03-15 19:31 | NUR ---
MS RN OPENING NOTE RECEIVED PT. PT IS STABLE AND RESTING IN BED. NO S/S OF RESP DISTRESS/SOB. PT DOES NOT APPEAR TO BE IN PAIN AT THIS TIME. ON RA, O2 SAT WNL. IV ACCESS LOCATED ON LFA 22G INFUSING LR AT 100 ML/HR. PT TO HAVE WOUND VAC APPLIED ON 03/16/18 & ABDOMINAL BINDER APPLIED WHEN OUT OF BED. @ BED SIDE. BED IN LOW LOCKED POSITION. SAFETY MEASURES IN PLACE, CALL LIGHT WITHIN REACH. WILL CONTINUE TO MONITOR.
[2018-03-15 20:00] VITALS: BP 145/98
--- NOTE | 2018-03-15 21:19 | NUR ---
PRN DILAUDID GIVEN PT HAD VERBALIZED C/O ABDOMINAL PAIN 05/07 & BACK PAIN & PAIN MEDS OFFERED. PT ONLY PREFERRED TO TAKE DILAUDID ONLY @ THIS TIME. WILL REASSESS FOR EFFECTIVENESS.
[2018-03-16] MEDS: PIPERACILLIN /TAZOBACTAM 3.375 G in IV D5W 50 ML IV SCH ×4 (00:08→17:26)
[2018-03-16] MEDS: ZOLPIDEM TARTRATE 5 MG TABLET PO PRN ×2 (00:08→22:35)
--- NOTE | 2018-03-16 00:08 | NUR ---
PRN AMBIEN GIVEN PT REQUESTED TO GET SLEEPING PILL, SINCE HE CANT GO TO SLEEP. PRN AMBIEN GIVEN. WILL REASSESS FOR EFFECTIVENESS.
[2018-03-16] MEDS: IV LR 1000 ML 1,000 ML IV PRN (06:00)
[2018-03-16] MEDS: HYDROMORPHONE INJ 2 MG/ML DISP.SYRIN IV PRN ×4 (06:06→20:52)
--- NOTE | 2018-03-16 06:06 | NUR ---
PRN DILAUDID GIVEN PT C/O ABDOMINAL PAIN 05/07, REQUESTED PAIN MEDICINE, PRN DILAUDID GIVEN. WILL REASSESS FOR EFFECTIVENESS.
--- NOTE | 2018-03-16 07:05 | NUR ---
MS RN CLOSING NOTE PT RESTING IN BED IN STABLE CONDITION. A & O X 4, COMORAN & LITTLE GABONESE SPEAKING. NO S/S OF RESP DISTRESS/SOB. PAIN MGMT DONE. ON RA, O2 SAT WNL. IV ACCESS LOCATED ON LFA 22G INFUSING LR AT 100 ML/HR. COLOSTOMY BAG INTACT & EMPTIED IT. USES URINAL IN BED. BED IN LOW LOCKED POSITION. SAFETY MEASURES IN PLACE, CALL LIGHT WITHIN REACH. ENDORSED TO AM RN FOR CONTINUITY OF CARE.
[2018-03-16 07:06] LABS: CALCIUM, SERUM 8.7 mg/dL (8.5-10.1); POTASSIUM 3.4 mmol/L (3.5-5.1)
[2018-03-16 08:00] VITALS: BP 157/99
[2018-03-16] MEDS ORDERED: POTASSIUM CHLORIDE 20 MEQ POWDER PACKET PO SCH (08:30)
[2018-03-16] MEDS: DAKINS QUARTER STRENGTH (0.125%) 480 ML BOTTLE TOP SCH (08:43)
[2018-03-16] MEDS: ENOXAPARIN SODIUM 40 MG/0.4 ML DISP.SYRIN SQ SCH (09:05)
[2018-03-16] MEDS: PANTOPRAZOLE 40 MG VIAL IV SCH (09:06)
--- NOTE | 2018-03-16 09:06 | NUR ---
m/s nutrition assistant: notes c/o 05/07 abdominal pain after wound vac was placed by wound nurse. medicated with dilaudid 1mg ivp by rn. instructed to call for assistance. will continue to monitor.
--- NOTE | 2018-03-16 09:12 | NUR ---
WOUND CARE CONSULT:PT SEEN FOR WOUND VAC APPLICATION. PT PRESENTS WITH ABDOMINAL OPEN INCISION WHICH MEASURES 13CM X 5CM X 5.5CM WITH RED GRANULATION TISSUE AND SOME YELLOW/ZAZUETA TISSUE IN WOUND BASE. NO ODOR NOTED. MODERATE AMOUNT OF REDDISH BROWN DRAINAGE NOTED ON OLD DRESSING. WOUND CLEANSED WITH DAKINS SOLUTION, THEN SKIN PREP APPLIED TO PERIWOUND AREAS WITH VAC DRAPE. GRANUFOAM DRESSING APPLIED TO WOUND (ONE PIECE ONLY). VAC AT 125mmHg CONTINUOUS SETTING. PT TOLERATED WELL. WILL FOLLOW.
--- NOTE | 2018-03-16 09:36 | NUR ---
m/s charger: notes pt with eyes close. appears comfortable. no resp. distress noted. will continue to monitor.
[2018-03-16] MEDS ORDERED: ENALAPRILAT DIHYD. (2.5MG/ML) 1.25 MG/ML VIAL IV PRN (10:30)
[2018-03-16] MEDS ORDERED: hydrALAZINE HCL 25 MG TABLET PO PRN (10:30)
--- NOTE | 2018-03-16 10:50 | NUR ---
m/s solar sales energy advisor: md visit seen and examined by dr. crandall at this time and updated plan of care.
[2018-03-16] MEDS ORDERED: HYDROCODONE/APAP 5/325MG 1 EACH TABLET PO PRN (13:30)
--- NOTE | 2018-03-16 13:30 | NUR ---
m/s gizzard peeler: notes up with p.t. using fww, luciano. well. pt refused iv fluids connected at this time.
--- NOTE | 2018-03-16 15:47 | NUR ---
m/s ethnoarchaeologist: notes c/o 05/07 abdominal pain, medicated with dilaudid 1mg ivp given as ordered. colostomy care rendered. kept clean and dry. instructed to call for assistance. will continue to monitor.
[2018-03-16 16:10] VITALS: BP 96/60
--- NOTE | 2018-03-16 16:17 | NUR ---
m/s development editor: notes pt awake, but sleepy. resp even and unlabored. voiced no discomfort. call light within reach. will continue to monitor.
--- NOTE | 2018-03-16 17:30 | NUR ---
m/s scooper: id f/u seen and examined by dr. ruiz. placed pt on contact isolation due to esbl wound. pt made aware and provided education, pt verbalized understanding. cn made aware.
--- NOTE | 2018-03-16 18:05 | NUR ---
m/s nascar racer: notes visiting at this time.
--- NOTE | 2018-03-16 19:25 | NUR ---
MS RN OPENING NOTE Patient was seen sitting in bed AAOx4, breathing on RA with no SOB, and no signs of acute distress. LR is running at 100ml/hr in the left FA (22g). Colostomy noted on left abdomen, stoma is a "beefy red" color; the bag does not currently need to be emptied. Wound Vac at 125 mmHg is attached to mid-abdominal dressing, draining serosanguineous fluid (currently at 50 ml); dressing is clean, dry, and intact. Patient is wearing compression stockings. Bed is in the low/locked position, two side rails up, and call dotson within reach. Patient has no immediate needs or concerns at this time. Will continue to monitor.
[2018-03-16 20:00] VITALS: BP 146/95
--- NOTE | 2018-03-16 20:52 | NUR ---
MS RN NOTE - Dilaudid Patient requested PRN pain medication for back pain reported at 05/07. Administered 1mg IV Dilaudid as ordered. Will continue to monitor.
--- NOTE | 2018-03-16 22:35 | NUR ---
MS RN NOTE - Ulices Patient requested medication to help him sleep and complained of too much noise. I offered the patient ear plugs. PO Ambien 5mg was administered per request.
[2018-03-17] MEDS: PIPERACILLIN /TAZOBACTAM 3.375 G in IV D5W 50 ML IV SCH ×5 (00:30→23:06)
[2018-03-17] MEDS: IV LR 1000 ML 1,000 ML IV PRN (04:03)
[2018-03-17 07:30] LABS: BASOPHILS # (AUTO) 0.1 /CMM (0.0-0.2); BASOPHILS % (AUTO) 0.9 % (0.0-2.0); EOSINOPHILS % (AUTO) 3.1 % (0.0-6.0); HEMATOCRIT 50 % (39-51); HEMOGLOBIN 16.7 g/dL (13.5-17.5); LYMPHOCYTES # (AUTO) 2.1 /CMM (0.8-4.8); LYMPHOCYTES % (AUTO) 24.9 % (20.0-44.0); MEAN CORPUSCULAR HGB CONC 34 g/dl (31.0-36.0); MEAN CORPUSCULAR VOLUME 97 fL (80-96); MONOCYTES # (AUTO) 0.8 /CMM (0.1-1.30); MONOCYTES % (AUTO) 9.5 % (2.0-12.0); NEUTROPHILS # (AUTO) 5.2 /CMM (1.8-8.9); NEUTROPHILS % (AUTO) 61.6 % (43.0-81.0); PLATELET COUNT (AUTO) 377 /CMM (150-450); RED BLOOD CELL COUNT(AUTO) 5.18 MIL/uL (4.5-6.0); WHITE BLOOD COUNT (AUTO) 8.5 K/uL (4.3-11.0)
--- NOTE | 2018-03-17 07:40 | NUR ---
MS RN CLOSING NOTE Patient slept well overnight with no complaints or acute events. Patient remains in stable condition; call dotson is within reach. Patient care has been endorsed to day shift RN.
[2018-03-17 07:52] LABS: CREATININE 1.1 mg/dL (0.6-1.3); MAGNESIUM 1.5 mg/dL (1.8-2.4); PHOSPHORUS 3.4 mg/dL (2.5-4.9); POTASSIUM 3.4 mmol/L (3.5-5.1)
[2018-03-17 08:00] VITALS: BP 151/100
--- NOTE | 2018-03-17 08:00 | NUR ---
ms rn received on bed, awake,alert,oriented x4,not in any form of distress, respirations even and unlabored,no sob noted. lungs are clear abdomen soft,positive bowel sounds, denies pain at this time,all needs attended.
[2018-03-17] MEDS: PANTOPRAZOLE 40 MG VIAL IV SCH (08:53)
[2018-03-17] MEDS: ENOXAPARIN SODIUM 40 MG/0.4 ML DISP.SYRIN SQ SCH (09:00)
--- NOTE | 2018-03-17 09:00 | NUR ---
ms [place] breakfast served, due meds given,tolerated well.
[2018-03-17] MEDS ORDERED: POTASSIUM CHLORIDE 20 MEQ POWDER PACKET PO SCH (12:00)
[2018-03-17] MEDS: HYDROMORPHONE INJ 2 MG/ML DISP.SYRIN IV PRN ×2 (12:21→20:21)
[2018-03-17] MEDS: Magnesium 1GM/D5W 100ML PREMIX 100 ML IV SCH ×4 (12:43→18:02)
--- NOTE | 2018-03-17 14:00 | NUR ---
ms rn picc line inserted,no distress noted.
[2018-03-17 16:00] VITALS: BP 128/80
[2018-03-17] MEDS: HYDROCODONE/APAP 10/325MG 1 EA TABLET PO PRN (16:08)
--- NOTE | 2018-03-17 19:38 | NUR ---
RN MS OPENING NOTES RECEIVED PATIENT IN BED, AWAKE ALERT AND ORIENTED X4, ABLE TO MAKE NEEDS KNOWN, RESPIRATIONS EVEN AN UNLABORED WITH EQUAL RISE AND FALL OF CHEST, NO DISTRESS PRESENT, DENIES ANY PAIN OR DISCOMFORT AT THIS TIME, RIGHT UPPER ARM PICC LINE,INTACT AND PATENT, NO REDNESS ,NO INFILTRATION PRESENT, IVF FLUIDS RUNNING ORDERED. WOUND VAC INTACT , NO LEAKS. ORIENTED TO STAFF AND CALL LIGHT, CALL LIGHT KEPT WITHIN REACH , PLAN OF CARE DISCUSSED, FLUIDS OFFERED, ALL NEEDS ATTENDED AT THIS TIME,REMAINS COMFORTABLE , WILL CONTINUE TO MONITOR.
[2018-03-17 20:00] VITALS: BP 123/81
--- NOTE | 2018-03-17 20:28 | NUR ---
RN MS NOTES PATIENT PAIN 05/07 REQUESTING FOR STRONG PAIN MEDICATION , OFFERED DILAUDID PRN ORDERED. AGREED TO PAIN MEDICATION, VITAL SIGNS ASSESSED, NOTED BP 123/81,83, RESPIRATIONS 18 EVEN AND UNLABORED. NO DISTRESS AT THIS TIME. WILL CONTINUE TO MONITOR.
[2018-03-18] MEDS: ZOLPIDEM TARTRATE 5 MG TABLET PO PRN (02:02)
--- NOTE | 2018-03-18 02:02 | NUR ---
RN NOTES PATIENT VERBALIZED THAT HE NEEDS MEDICATION TO HELP HIM SLEEP. ADMINISTERED AMBIEN ORDERED. WILL CONTINUE TO MONITOR.
[2018-03-18] MEDS: PIPERACILLIN /TAZOBACTAM 3.375 G in IV D5W 50 ML IV SCH ×3 (05:14→17:38)
[2018-03-18] MEDS: IV LR 1000 ML 1,000 ML IV PRN (05:15)
[2018-03-18] MEDS: HYDROCODONE/APAP 10/325MG 1 EA TABLET PO PRN ×2 (05:31→12:48)
--- NOTE | 2018-03-18 05:31 | NUR ---
RN MS NOTES PATIENT COMPLAINT OF PAIN TO BACK 05/07 , NORCO 10/ PRN OFFERED, AGREED , PRN GIVEN ORDERED,WILL CONTINUE TO MONITOR. VITAL SIGNS WNL
--- NOTE | 2018-03-18 06:35 | NUR ---
RN MS CLOSING NOTES PATIENT IN BED, SLEEPING BUT EASILY AROUSABLE, ALERT AND ORIENTED X4, ABLE TO MAKE NEEDS KNOWN, RESPIRATIONS EVEN AN UNLABORED WITH EQUAL RISE AND FALL OF CHEST, NO DISTRESS PRESENT, DENIES ANY PAIN OR DISCOMFORT AT THIS TIME NOTED PRN NORCO EFFECTIVE, RIGHT UPPER ARM PICC LINE,INTACT AND PATENT, NO REDNESS ,NO INFILTRATION PRESENT, IVF FLUIDS RUNNING ORDERED. WOUND VAC INTACT , NO LEAKS. URINAL AT BEDSIDE, SACRAL AND BACK ASSESSED NOTED INTACT. CALL LIGHT KEPT WITHIN REACH, FLUIDS OFFERED, ALL NEEDS ATTENDED AT THIS TIME,REMAINS COMFORTABLE , WILL CONTINUE TO MONITOR AND ENDORSE TO NEXT SHIFT.
[2018-03-18 06:43] LABS: CALCIUM, SERUM 8.5 mg/dL (8.5-10.1); CREATININE 1.1 mg/dL (0.6-1.3); MAGNESIUM 1.7 mg/dL (1.8-2.4); POTASSIUM 3.2 mmol/L (3.5-5.1)
--- NOTE | 2018-03-18 07:24 | NUR ---
RN MS OPENING NOTES RECEIVED PATIENT AWAKE IN BED IN NO ACUTE SIGNS OF DISTRESS. A/O X4. VERBALLY RESPONSIVE, DENIES ANY PAIN OR DISCOMFORTS AT THIS TIME. ON ROOM AIR, RESPIRATIONS EVEN AN UNLABORED. RIGHT UPPER ARM DOUBLE LUMEN PICC LINE INTACT AND PATENT, NO REDNESS OR BLEEDING AT SITE NOTED, IVF OF LR @50ML/HR INFUSING. WOUND VAC TO ABDOMINAL WOUND INTACT, NO LEAKS WITH SEROSANGUINEOUS DRAINAGE NOTED TO COLLECTING CANISTER. COLOSTOMY BAG IN PLACE WITH SOFT LIGHT BROWNISH STOOL NOTED. HOB ELEVATED. BED IN LOW/LOCKED POSITION. CALL LIGHT WITHIN REACH. WILL CONTINUE TO MONITOR.
[2018-03-18 08:00] VITALS: BP 159/101
[2018-03-18] MEDS: PANTOPRAZOLE 40 MG VIAL IV SCH (08:14)
[2018-03-18] MEDS: ENOXAPARIN SODIUM 40 MG/0.4 ML DISP.SYRIN SQ SCH (08:15)
[2018-03-18] MEDS: HYDROMORPHONE INJ 2 MG/ML DISP.SYRIN IV PRN (08:28)
--- NOTE | 2018-03-18 09:24 | NUR ---
RN NOTES PATIENT NOTED WITH LOW K 3.2 AND MG 1.7, CALLED LAB FOR REPLACEMENT. WILL CONTINUE TO MONITOR
--- NOTE | 2018-03-18 10:26 | NUR ---
WOUND CARE: WOUND VAC FUNCTIONING WELL TO ABDOMINAL WOUND AT 125mm Hg CONTINUOUS SETTING WITH SMALL AMOUNT OF RED DRAINAGE IN CANISTER.
[2018-03-18] MEDS ORDERED: ERTA1VIA2 IV (10:29)
[2018-03-18] MEDS ORDERED: DOCU-141 PO (10:30)
[2018-03-18] MEDS ORDERED: POTASSIUM CHLORIDE 20 MEQ TAB.PRT.SR PO ONE (10:30)
[2018-03-18] MEDS: Magnesium 1GM/D5W 100ML PREMIX 100 ML IV SCH ×3 (10:52→13:42)
[2018-03-18] MEDS ORDERED: MAGNESIUM OXIDE 400 MG TABLET PO ONE (11:00)
--- NOTE | 2018-03-18 11:35 | NUR ---
RN NOTES PATIENT NOTED THIS MORNING WITH ELEVATED BP OF 159/101MMHG, NO SIGNS OF DISTRESS OR COMPLAINTS VOICED. BP RE-CHECKED AFTER 1 HOUR AND WAS 147/98MMHG. DR LOYD ON UNIT AND MADE AWARE AND SAID THAT PT IS ONLY ANXIOUS AND WANTED TO GO HOME THAT'S WHY HIS BP IS ELEVATED. WILL CONTINUE TO MONITOR
--- NOTE | 2018-03-18 12:23 | NUR ---
OIL PAINTER ABDOMINAL WOUND DRESSING ORDERS UPON DISCHARGE FROM THE HOSPITAL CLARIFIED WITH SURGEON DR SCOTT. HOME VAC HAS BEEN ARRANGED BY CASE MANAGEMENT AND TO BE DELIVERED TO PATIENT'S HOME. PATIENT TO FOLLOW UP WITH SURGEON DR SCOTT IN 10 DAYS. ALL DISCUSSED WITH NURSING.
--- NOTE | 2018-03-18 17:58 | NUR ---
RN DISCHARGED NOTES PATIENT DISCHARGED HOME IN STABLE CONDITION. A/O X 4,. VERBALLY RESPONSIVE WITH NO COMPLAINTS VOICED DURING DISCHARGE. WOUND VAC TO ABDOMINAL WOUND REMOVED, WOUND CLEANSED WITH DAKINS SOLUTION, THEN PACKED WITH DAKINS MOISTENED GAUZED THEN COVERED WITH ABDOMINAL PAD. COLOSTOMY BAG CHANGED, PHOTOS OF ABDOMINAL WOUND AND COLOSTOMY TAKEN AND FILED ON CHART. DOUBLE LUMEN PICC KEPT IN PLACE DUE TO PT TO CONTINUE TO TAKE IV ABT AND TO BE REMOVED AFTER ABT THERAPY. V/S TAKEN AND RECORDED. BELONGINGS CHECKED, COUNTED AND SIGNED FORM. PRESCRIPTION OF NORCO GIVEN TO PT'S . ALL TELEPHONE NUMBERS FOR F/U PROVIDED. HEALTH TEACHINGS AND DISCHARGE INSTRUCTIONS GIVEN TO PT AND , BOTH VERBALIZED UNDERSTANDING. SMOKE CESSATION GIVEN TO PT. PT LEFT UNIT AT 1800 VIA WHEELCHAIR ACCOMPANIED BY ENVIRONMENTAL STUDIES FACULTY MEMBER AND PT'S IN NO ACUTE SIGNS OF DISTRESS. MD AND CHARGE NURSE AWARE OF DISCHARGE.
== END 2018-03-18 18:00 | disposition home health service (06) | DRG 710 ==
LOC: ER 10:57 → TELE 12:47 → MED 13:10 → ICU 17:00 → TELE 03-07 11:42 → MED 03-08 08:59
PROVIDERS: ADMIT Internal Medicine; ATTEND Internal Medicine
PROC: 0TND0ZZ Release Urethra, Open Approach (ICD-10-PCS; principal; 2018-03-06 14:45)
PROC: 0D1M0Z4 Bypass Descending Colon to Cutaneous, Open Approach (ICD-10-PCS; principal; 2018-03-06 14:45)
PROC: 0DTN0ZZ Resection of Sigmoid Colon, Open Approach (ICD-10-PCS; principal; 2018-03-06 14:45)
PROC: 02HV33Z Insertion of Infusion Device into Superior Vena Cava, Percutaneous Approach (ICD-10-PCS; 2018-03-17)
DX: A41.9 Sepsis, unspecified organism (principal); N17.0 Acute kidney failure with tubular necrosis; E43 Unspecified severe protein-calorie malnutrition; K57.20 Diverticulitis of large intestine with perforation and abscess without bleeding; E87.1 Hypo-osmolality and hyponatremia; E87.70 Fluid overload, unspecified; D75.1 Secondary polycythemia; E66.9 Obesity, unspecified; Z68.25 Body mass index [BMI] 25.0-25.9, adult; F17.200 Nicotine dependence, unspecified, uncomplicated; I10 Essential (primary) hypertension; R09.02 Hypoxemia; E86.1 Hypovolemia; L03.90 Cellulitis, unspecified; E87.6 Hypokalemia
CPT/HCPCS: 36415; 36569; 71045-TC; 80048-TC; 80076-TC; 81000-TC; 82565-TC; 83605-TC; 83690-TC; 83735-TC; 84100-TC; 84484-TC; 85025-TC; 85730-TC; 86850-TC; 87040-TC; 87070-TC; 87081-TC; 87086-TC; 87186-TC; 88307-TC; 97110-TC; 97112-TC; 97116-TC; 97530-TC; A4606; A6253; A6402; A6403; A6407; C1751; C9113; J0330; J0360; J1100; J1170; J1650; J2250; J2270; J2405; J2543; J2704; J2710; J3370; J3475; J3480; J3490; J7030; J7040; J7060; J7120; Q9967; Q9968; Z7610

== ENCOUNTER 2018-04-16 21:01 | Inpatient (IN) | payer OTHER ==
[~2018-04-16] VITALS: Ht 177.8 cm; Wt 77.1 kg
[~2018-04-16 21:01] MED LIST: DOCU-141 PO; ERTA1VIA2 IV
--- NOTE | 2018-04-16 21:20 | NUR ---
PT SELF PRESENTS TO ER BED 16. WAS SENT BY FOR SURGICAL WOUND EVAL POST SIGMOIDECTOMY. SURGICAL WOUND COVERED. PER REPORT, FORIEGN BODY WAS NOTED TO SURGICAL WOUND. PT DENIES ANY PAIN AT THIS TIME. PLACED ON MONITOR. STABLE VITALS. AWAITING MD QUEVEDO.
--- NOTE | 2018-04-16 22:27 | NUR ---
DR WHITTINGTON AT BEDSIDE FOR EVAL.
--- NOTE | 2018-04-16 22:38 | NUR ---
UNIVERSITY TUTOR AT BEDSIDE FOR BLOOD DRAW.
[2018-04-16 22:47] LABS: BASOPHILS # (AUTO) 0.1 /CMM (0.0-0.2); BASOPHILS % (AUTO) 0.6 % (0.0-2.0); EOSINOPHILS % (AUTO) 2.6 % (0.0-6.0); HEMATOCRIT 49 % (39-51); HEMOGLOBIN 16.1 g/dL (13.5-17.5); LYMPHOCYTES # (AUTO) 3.1 /CMM (0.8-4.8); LYMPHOCYTES % (AUTO) 28.9 % (20.0-44.0); MEAN CORPUSCULAR HEMOGLOBIN 31 PG (26.0-33.0); MEAN CORPUSCULAR HGB CONC 33 g/dl (31.0-36.0); MEAN CORPUSCULAR VOLUME 94 fL (80-96); MONOCYTES # (AUTO) 0.8 /CMM (0.1-1.30); MONOCYTES % (AUTO) 6.9 % (2.0-12.0); NEUTROPHILS # (AUTO) 6.6 /CMM (1.8-8.9); PLATELET COUNT (AUTO) 225 /CMM (150-450); RDW COEFFICIENT OF VARIATION 15.5 (11.5-15.0); RED BLOOD CELL COUNT(AUTO) 5.15 MIL/uL (4.5-6.0); WHITE BLOOD COUNT (AUTO) 10.9 K/uL (4.3-11.0)
[2018-04-16] MEDS ORDERED: MORPHINE SULFATE INJ 2 MG/ML DISP.SYRIN IV PRN (23:00)
[2018-04-16] MEDS ORDERED: VANCOMYCIN 1 GM in IV D5W 250 ML IV SCH (23:00)
[2018-04-16] MEDS ORDERED: ONDANSETRON HCL/PF 4 MG/2 ML VIAL IVP PRN (23:00)
[2018-04-16 23:01] LABS: CREATININE 1.1 mg/dL (0.6-1.3); POTASSIUM 4.3 mmol/L (3.5-5.1)
--- NOTE | 2018-04-16 23:08 | NUR ---
RADIOLOGY AT BEDSIDE FOR CHEST XRAY.
[2018-04-16 23:15] LABS: INR 1.03 (0.87-1.13)
--- NOTE | 2018-04-16 23:29 | NUR ---
REPORT GIVEN TO JERRI. PT AWAITING TRANSFER TO FLOOR.
--- NOTE | 2018-04-16 23:55 | NUR ---
MS/RN RECEIVED PATIENT FROM E.R. VIA WHEELCHAIR. PATIENT IS AWAKE, ALERT, ORIENTED, COMFORTABLE, NO C/O PAIN, NO DISTRESS NOTED, ADMISSION DONE PER PROTOCOL, PHOTO WAS TAKEN ON ABDOMINAL WOUND, DRESSING WAS CHANGED. NPO STATUS PER ORDER. PLAN OF CARE DISCUSSED, VERBALIZED UNDERSTANDING AND AGREEMENT. WILL MONITOR.
[2018-04-17] VITALS: BP 158/95
[2018-04-17] MEDS: IV NS 0.9% 1,000 ML IV PRN (01:23)
[2018-04-17] MEDS ORDERED: MEROPENEM 1 G VIAL IV ONE (01:40)
[2018-04-17] MEDS ORDERED: VANCOMYCIN 1 GM in IV D5W 250ml IV ONE (02:00)
[2018-04-17] MEDS ORDERED: MEROPENEM 1 G in IV NS 0.9% 100 ML IV ONE ×2 (02:00→11:00)
[2018-04-17] MEDS ORDERED: VANCOMYCIN 1 GM VIAL ONE (02:27)
--- NOTE | 2018-04-17 06:13 | NUR ---
MS/RN PATIENT IS SLEEPING, COMFORTABLE, AROUSABLE, NO DISTRESS NOTED, CALL LIGHT IN REACH. ALL NEEDS ATTENDED AT THIS TIME. WILL CONTINUE TO MONITOR.
[2018-04-17 06:16] LABS: BASOPHILS # (AUTO) 0.1 /CMM (0.0-0.2); BASOPHILS % (AUTO) 0.8 % (0.0-2.0); HEMATOCRIT 47 % (39-51); HEMOGLOBIN 15.6 g/dL (13.5-17.5); LYMPHOCYTES # (AUTO) 3.5 /CMM (0.8-4.8); LYMPHOCYTES % (AUTO) 37.8 % (20.0-44.0); MEAN CORPUSCULAR HEMOGLOBIN 31 PG (26.0-33.0); MEAN CORPUSCULAR HGB CONC 33 g/dl (31.0-36.0); MEAN CORPUSCULAR VOLUME 94 fL (80-96); MONOCYTES # (AUTO) 0.9 /CMM (0.1-1.30); MONOCYTES % (AUTO) 9.8 % (2.0-12.0); NEUTROPHILS # (AUTO) 4.4 /CMM (1.8-8.9); NEUTROPHILS % (AUTO) 47.6 % (43.0-81.0); PLATELET COUNT (AUTO) 234 /CMM (150-450); RDW COEFFICIENT OF VARIATION 15.2 (11.5-15.0); RED BLOOD CELL COUNT(AUTO) 5.04 MIL/uL (4.5-6.0); WHITE BLOOD COUNT (AUTO) 9.3 K/uL (4.3-11.0)
--- NOTE | 2018-04-17 06:16 | NUR ---
MS/RN PATIENT IS SLEEPING, EASILY AROUSABLE, APPEAR COMFORTABLE, NO DISTRESS NOTED, CALL LIGHT IN REACH, ALL NEEDS ATTENDED AT THIS TIME. WILL CONTINUE TO MONITOR.
[2018-04-17 06:50] LABS: CALCIUM, SERUM 8.8 mg/dL (8.5-10.1); CREATININE 0.9 mg/dL (0.6-1.3); MAGNESIUM 1.7 mg/dL (1.8-2.4); PHOSPHORUS 4.1 mg/dL (2.5-4.9); POTASSIUM 3.4 mmol/L (3.5-5.1)
[2018-04-17] MEDS ORDERED: FEE PK DOSING 1 MIN EA MC ONE (07:42)
[2018-04-17 08:00] VITALS: BP 143/98
--- NOTE | 2018-04-17 08:07 | NUR ---
RN NOTE: OPENING: PATIENT IS IN BED SLEEPING. EASILY AWOKEN, ALERT AND ORIENTED X 4. PATIENT ON ROOM AIR, UNLABORED BREATHING, NO SOB. COLOSTOMY LEFT LOWER QUADRANT. IV RIGHT UPPER ARM NS AT 75 ML/HR. PICC LINE. INTACT. BED LOCKED, HAND RAILS UP, AND CALL LIGHT WITHIN REACH. WILL CONT TO MONITOR.
[2018-04-17] MEDS: PANTOPRAZOLE 40 MG VIAL IV SCH (09:25)
[2018-04-17] MEDS: Magnesium 1GM/D5W 100ML PREMIX 100 ML IV SCH ×2 (10:22→15:46)
[2018-04-17] MEDS: VANCOMYCIN 1 GM in IV D5W 250 ML IV SCH (12:50)
[2018-04-17 16:00] VITALS: BP 164/96
[2018-04-17] MEDS: POTASSIUM CL. PREMIX PERIPHER. 50 ML IV SCH ×2 (17:11→18:04)
--- NOTE | 2018-04-17 18:44 | NUR ---
RN NOTE; CLOSING: PT IN BED. ALERT AND ORIENTED X 4. TOLERATING ROOM AIR 100% STABLE CONDITION. RESPIRATION EVEN AND UNLABORED. PATIENT ON NPO. PATIENT'S CALL LIGHT IS WITHIN REACH. BED AT THE LOWEST. LOCKED. SIDE RAILS UP.
[2018-04-17 20:00] VITALS: BP 138/86
--- NOTE | 2018-04-17 20:00 | NUR ---
MS/RN OPENING NOTES RECEIVED REPORT FROM AM RN FOR TOAN. REPORT GIVEN, PATIENT ALERT, ORIENTED X3, ABLE TO VERBALIZE NEEDSS OBSERVE ASLEEP, BUT AROUSABLE. SKIN WARM TO TOUCH, SONIA BRYANT CAME TO SEE HIM AT BED SIDE. ORDER FOR A WOUND EXPLORATION WITH REMOVAL OF FOREIGN BODY AND TO OBTAIN CONSENT. WILL MONITOR.
--- NOTE | 2018-04-17 20:02 | NUR ---
MS/RN NOTES PATIENT WAS INFORMED PER MD ORDER TO RESUME DIET ORDERED, TO HAVE NOURISHMENT/SNAKCS BEFORE MIDNIGHT, PATIENT WAS PROVIDED SNACKS AND FLUIDS, TOLERTAED WELL. . CONSENT RECEIVED AND SIGNED.,, WOUND IN ABDOMEN OBSERVED AND COVERED WITH MAYDA DRESSING.
[2018-04-17] MEDS: MEROPENEM 1 G in IV NS 0.9% 100 ML IV SCH (21:12)
--- NOTE | 2018-04-17 23:18 | NUR ---
MS/RN NOTES PATIENT WAS ABLE TO URINATE IN DIAPER. FAMILY REFUSE TO HAVE SOLIMAN INSERTED BUT AGREED FOR THE ENEMA.
[2018-04-18] VITALS (7 sets, daily range): BP systolic 104–148; BP diastolic 61–97
[2018-04-18] MEDS: VANCOMYCIN 1 GM in IV D5W 250 ML IV SCH ×2 (01:04→13:55)
[2018-04-18] MEDS: IV NS 0.9% 1,000 ML IV PRN (03:32)
[2018-04-18] MEDS: MEROPENEM 1 G in IV NS 0.9% 100 ML IV SCH ×3 (04:31→21:45)
[2018-04-18 06:41] LABS: BASOPHILS # (AUTO) 0.1 /CMM (0.0-0.2); BASOPHILS % (AUTO) 1.6 % (0.0-2.0); EOSINOPHILS % (AUTO) 3.6 % (0.0-6.0); HEMATOCRIT 48 % (39-51); HEMOGLOBIN 15.5 g/dL (13.5-17.5); MEAN CORPUSCULAR HEMOGLOBIN 31 PG (26.0-33.0); MEAN CORPUSCULAR HGB CONC 33 g/dl (31.0-36.0); MEAN CORPUSCULAR VOLUME 94 fL (80-96); MONOCYTES # (AUTO) 0.8 /CMM (0.1-1.30); MONOCYTES % (AUTO) 9.3 % (2.0-12.0); NEUTROPHILS # (AUTO) 4.1 /CMM (1.8-8.9); NEUTROPHILS % (AUTO) 49.5 % (43.0-81.0); PLATELET COUNT (AUTO) 241 /CMM (150-450); RDW COEFFICIENT OF VARIATION 15.4 (11.5-15.0); RED BLOOD CELL COUNT(AUTO) 5.06 MIL/uL (4.5-6.0); WHITE BLOOD COUNT (AUTO) 8.3 K/uL (4.3-11.0)
--- NOTE | 2018-04-18 06:51 | NUR ---
316-1 MS/RN NOTES PATIENT ABLE TO SLEEP DURING THE NIGHT, ALERT, ORIENTED X3, RESTING COMFORTABLY IN BED, RESPIRATIONS EVEN AND UNLABORED, KEPT SKIN INTACT AND DRY, ATTEND TO NEEDS, INSTRUCTED ON SAFETY MEASURES, ON NPO AT MIDNIGHT FOR SOME PROCEDURE, CALL LIGHTS WITHIN REACH, BED IN LOCK POSITION. WILL MONITOR.
[2018-04-18 06:53] LABS: CALCIUM, SERUM 8.7 mg/dL (8.5-10.1); CREATININE 0.9 mg/dL (0.6-1.3); POTASSIUM 3.7 mmol/L (3.5-5.1)
--- NOTE | 2018-04-18 07:20 | NUR ---
MS RN OPENING NOTE RECEIVED PATIENT IN BED. SLEEPING, EASILY AROUSED WITH VERBAL STIMULI, ORIENTED X4. ON ROOM AIR. TOLERATING WELL. RESPIRATIONS EVEN AND UNLABORED. IN NO APPARENT DISTRESS OR DISCOMFORT AT THIS TIME. ABLE TO COMMUNICATE NEEDS. PATIENT WITH COLOSTOMY BAG INTACT. DRESSING ON INCISION SITE IS CLEAN AND INTACT. PATIENT WAS KEPT NPO SINCE MIDNIGHT FOR UPCOMING SURGERY. RIGHT UPPER ARM PICC LINE WITH IV FLUIDS RUNNING AT 75 ML/HR. KEPT CLEAN AND COMFORTABLE. ALL NEEDS ATTENDED. SAFETY MEASURES IN PLACE, BED IN LOW LOCKED POSITION, SIDE RIAL UP X2, CALL LIGHT WITHIN EASY REACH. WILL CONTINUE TO MONITOR.
[2018-04-18] MEDS: PANTOPRAZOLE 40 MG VIAL IV SCH (08:20)
[2018-04-18] MEDS ORDERED: CAPT25TA3 PO (11:39)
[2018-04-18] MEDS: CAPTOPRIL 12.5 MG TABLET PO SCH ×3 (12:30→17:00)
[2018-04-18] MEDS ORDERED: DOCUSATE SODIUM 100 MG CAPSULE PO PRN (12:30)
--- NOTE | 2018-04-18 15:00 | NUR ---
PATIENT IS ON NPO STATUS. BP REMAINED IN 140S/90S THROUGHOUT THE SHIFT. DR. MALDONADO WAS MADE AWARE. RECEIVED ORDER TO CONTINUE TO MONITOR FOR NOW.
--- NOTE | 2018-04-18 16:30 | NUR ---
PATIENT'S BP REMAINED WITHIN THE SAME RANGE DURING THE DAY. 148/97 IS THE LATEST BP. WILL CONTINUE TO MONITOR.
--- NOTE | 2018-04-18 18:22 | NUR ---
MS RN CLOSING NOTE PATIENT IN BED. ALERT ORIENTED X4. ON ROOM AIR. TOLERATING WELL. RESPIRATIONS EVEN AND UNLABORED. IN NO APPARENT DISTRESS OR DISCOMFORT AT THIS TIME. ABLE TO COMMUNICATE NEEDS. PATIENT WITH COLOSTOMY BAG INTACT. DRESSING ON INCISION SITE IS CLEAN AND INTACT. PATIENT WAS KEPT NPO SINCE MIDNIGHT FOR UPCOMING SURGERY. RIGHT UPPER ARM PICC LINE WITH IV FLUIDS RUNNING AT 75 ML/HR. KEPT CLEAN AND COMFORTABLE. ALL NEEDS ATTENDED. SAFETY MEASURES IN PLACE, BED IN LOW LOCKED POSITION, SIDE RIAL UP X2, CALL LIGHT WITHIN EASY REACH. AWAITING FOR OR TEAM TO PICK HIM UP FOR SURGERY. OTHERWISE WILL CONTINUE TO MONITOR UNTIL ENDORSED TO PM NURSE FOR TOAN.
[2018-04-18] MEDS ORDERED: ANESTHESIA TRAY IN PYXIS 1 EA TRAY MC ONE (18:42)
--- NOTE | 2018-04-18 18:45 | NUR ---
PATIENT WAS TAKEN DOWNSTAIRS TO THE OR FOR SURGERY IN STABLE CONDITION, ALERT ORIENTED X4. VITAL SIGNS WITHIN PATIENT'S NORMAL LIMITS.
--- NOTE | 2018-04-18 19:00 | NUR ---
MS/RN OPENING NOTES DR SIERRA AT PATIENT S BED SIDE DISCUSSED PROCEDURE TO BE DONE TONIGHT, PATIENT WHEELED TO OPERATION ROOM BY NURSE. ACCOMPANIED BY FAMILY MEMBER. ALERT, ORIENTED, RESPIRATIONS EVEN AND UNLABORED,WILL MONITOR
[2018-04-18] MEDS ORDERED: BUPIVACAINE 0.5 % PF 150 MG/30 ML VIAL ONE (19:20)
[2018-04-18] MEDS ORDERED: SEVOFLURANE 250 ML BOTTLE IH ONE (19:40)
[2018-04-18] MEDS ORDERED: HYDROMORPHONE INJ 2 MG/ML DISP.SYRIN ONE ×2 (20:12→20:14)
--- NOTE | 2018-04-18 20:37 | NUR ---
MS/RN NOTES RECEIVED REPORT FROM RECOVERY ROOM JESSE QUINONES FOR PATIENT WHO HAD S/P DEBRIDEMENT OF WOUND , WOUND TREATMENT APPLIED 4X4 BETADINE AND DRESSING, PER ,D PAIN MEDICATION LAST GIVEN DIALUDID .4MG AT 2020, RESUME HOME MED, REGULAR DIET AND D/C PLAN PROBABLE IN AM/ WILL ASSIST PATIENT TO BRING BACK TO [facility] FLOOR.
--- NOTE | 2018-04-18 21:00 | NUR ---
RECEIVED ORDER FROM DR. LEVINE FOR DISCHARGE TO HOME, ORDERED AND CLEARED BY SURGEON SONIA, REQUESTED BY PATIENT TO BE DISCHARGE TONIGHT AND PATIENT HH OF CHOICE WITH [facility], CONTACTED PRODUCTION CONTROL ANALYST CORIE AND PROVIDED CONTACT NO FOR INSURANCE PURPOSE.
--- NOTE | 2018-04-18 21:00 | NUR ---
MS/RN NOTES PATIETN ARRIVED FROM RECOVERY ACCOMPANIED BY 2 RN, ALERT, ORIENTED, VERBALIZED NEEDS AND REPORTED PAIN OF 2/10. VITAL SIGNS CHECKED 134/94, PAIN OF 2/10, PULSE 76, TEMP- 98.2 AND O2 SAT 3L VIA NC AT 96%, SKIN WARM TO TOUCH. FAMILY AT BEDSIDE AND WILL MONITOR PATIENT, MD ORDER TO RESUME DIET REGULAR, DISCHARGE ONCE PATIENT IS AWAKE, RESUME MEDICATION.WILL ENTER ORDER.
--- NOTE | 2018-04-18 22:09 | NUR ---
ms/rn notes awaiting for md assembler carbon brushes to return regarding order, patient had s/p surgeryawake, alert x3
--- NOTE | 2018-04-18 23:45 | NUR ---
MS/RN NOTES PATIENT ON ROOM AIR AT 92%, WITH COPD DX.
--- NOTE | 2018-04-18 23:50 | NUR ---
MS/RN NOTES PATIENT DISCHARGE TO HOME BY PRIVATE AUTO ACCOMPANIED BY RONA, ASSISTED AND WHELED TO CAR BY RN FOR SAFETY. DISCUSSED HOME MEDICATION, SAFETY PRECAUTIONS, FOLLOW UP WITH PCP, PAIN CONTROLLED, VITAL SIGNS CHECK B/P 126/89, PULSE 72, R- 18, T- 98.3 HR AT 92, NO PAIN REPORTED, ABLE TO WALK AND AMBULATE SAFLY, DISCUSSED HOME CARE NEEDS, MADE AWARE AND SMOKING CESSATION INSTRUCTIONS PROVIDED PATIENT IS A SMOKER. ALERT, ORIENTED X3, ABLE TO VERBALIZE NEEDS, WOUND DRESSING INTACT AND DRY. PICC LINE ON RUN WITH NO S/S OF INFILTRATION. BELONGINGS WITH PATIENT, MEDICATION EDUCATION INSTRUCTED, NAME BAND REMOVED. SAFELY DISCHARGE TO HOME.
== END 2018-04-19 00:07 | disposition home health service (06) | DRG 385 ==
LOC: ER 21:07 → MED 23:39
PROC: 0JB80ZZ Excision of Abdomen Subcutaneous Tissue and Fascia, Open Approach (ICD-10-PCS; principal; 2018-04-18 20:55)
PROC: 0HC7XZZ Extirpation of Matter from Abdomen Skin, External Approach (ICD-10-PCS; principal; 2018-04-18 20:55)
PROC: 02HV33Z Insertion of Infusion Device into Superior Vena Cava, Percutaneous Approach (ICD-10-PCS; principal; 2018-04-18 20:55)
PROC: B548ZZA Ultrasonography of Superior Vena Cava, Guidance (ICD-10-PCS; principal; 2018-04-18 20:55)
DX: L92.3 Foreign body granuloma of the skin and subcutaneous tissue (principal); E83.42 Hypomagnesemia; I10 Essential (primary) hypertension; L03.311 Cellulitis of abdominal wall; Z93.3 Colostomy status; Z98.890 Other specified postprocedural states; B96.89 Other specified bacterial agents as the cause of diseases classified elsewhere; E87.6 Hypokalemia
CPT/HCPCS: 36415; 71045-TC; 80048-TC; 83735-TC; 84100-TC; 85025-TC; 85730-TC; 87081-TC; A4606; A6253; A6402; A6403; C9113; J1170; J2185; J3370; J3475; J3480; J3490; J7030; J7060; Z7610